=== PATIENT | female | born 1995 | race Hispanic/Latino ===

== ENCOUNTER 2022-01-19 18:50 | Emergency (ER) | payer SELFPAY ==
--- OUTSIDE RECORDS SUMMARY | 2022-01-19 18:53 | XMS REPORT | Continuity of Care Document ---
:1995 Author Organization [facility] t Address [address] [place] [address] Care Team Providers Name Role Phone MARCELA Attending Clinician Unavailable DR HOLLI MELENDEZ Attending Clinician Unavailable MARCELA Admitting Clinician Unavailable DR HOLLI MELENDEZ Admitting Clinician Unavailable Payers Payer Name Policy Type Policy Number Effective Date Expiration Date [facility] [id number] 2018 CHOICE (MEDICAID 00:00:00 REPLACEMENT - HMO) Problems This patient has no known problems. Allergies, Adverse Reactions, Alerts This patient has no known allergies or adverse reactions. Medications This patient has no known medications. Procedures This patient has no known procedures. Encounters Start End Encounter Admission Attending Care Care Encounter Source Date/Time Date/Time Type Type Clinicians Facility Department ID 2021-10-17 2021-10-17 Outpatient [facility] [place] [id number] [place] 06:39:00 06:39:00 [facility] 2021-03-13 2021-03-13 Outpatient [facility] [place] [id number] [place] 12:39:00 12:39:00 [facility] 2019-12-09 2019-12-09 Outpatient [facility] [id number] [place] 12:55:00 12:55:00 [facility]12 [facility] 2019-10-04 2019-10-04 Out[place] [id number] [place] 11:48:00 11:48:00 [facility] [id number] [facility] 2019-09-27 2019-09-27 Outpatient [facility] [id number] [place] 02:44:00 02:44:00 [facility] [id number] [facility] 2019-08-25 2019-08-25 Outpatient [facility] [place] [id number] [place] 06:01:00 06:01:00 [facility] 2018-07-13 2018-07-14 [place] [facility] [place] [id number] 20:25:00 21:15:00 [facility] Results Test Description Test Time Test Comments Results Result [facility] Comments U/S 2018-06-29 OBSTETRIC ULTRASOUND >14 WEEKS*WW* 6 Location code: [id number] 09:42:26 HISTORY: Threatened premature labor - not deliveredGA by today's US: 35 weeks and 6 daysEDD by today's ultrasound: 08/12/2018Findings:There is a single intrauterine in vertex presentation. Estimatedfetal heart rate is 145 beats per minute. Amniotic fluid index is 15.5 cm. Theplacenta is right lateral with grade 1 changes. There is no evidence of previaor abruption. The cervix is closed and measures 3.5 cm. The maternal adnexa areunremarkable. Approximate sonographic age is 35 weeks and 6 days based upon the following:BPD 8.9 cm 35 weeks 6 daysHC 31.9 cm 35 weeks 6 daysAC 32.0 cm 35 weeks 6 daysFL 7.1 cm 36 weeks 3 days ratios are within normal limits. weight estimateWeight: 2834 gramsWT%: 64% for 35 weeks 6 daysAnatomic survey reveals no abnormality of the intracranial contents,four-chamber heart, stomach, bilateral kidneys, urinary bladder, 3 vessel cord,cord insertion, spine, and extremities.IMPRESSION: 1. Single intrauterine in vertex presentation with an approximatesonographic age of 35 weeks and 6 days. 2. No abnormality identified. CBC (INCLUDES AUTOMATED DIFFERENTIAL)* 2018-07-13 21:34:00 Test Item Value Reference Range Interpretation Comme nts WBC (test code = WBC) 10.7 10\S\3/uL 4.5-11.0 RBC (test code = RBC) 3.84 10\S\6/uL 4.30-5.70 L HGB (test code = HBG) 9.0 g/dL 12.0-15.5 L HCT (test code = HCT) 28.8 % 35.0-44.0 L MCV (test code = MCV) 75.0 fL 81.0-99.0 L MCH (test code = MCH) 23.4 pg 27.0-31.0 L MCHC (test code = MCHC) 31.3 g/dL 32.0-36.0 L RDW (test code = RDW) 15.3 % 11.5-14.5 H PLT (test code = PLT) 356 10\S\3/uL 130-400 MPV (test code = MPV) 9.6 fL 9.4-12.4 NEUTROP # (test code = NE#) 7.2 10\S\3/uL 1.6-8.0 LYMPH # (test code = LY#) 2.5 10\S\3/uL 1.1-3.5 MONOCYTE # (test code = MO#) 0.6 10\S\3/uL 0.0-1.1 EOSINOPH # (test code = EO#) 0.1 10\S\3/uL 0.0-0.7 BASOPHIL # (test code = BA#) 0.0 10\S\3/uL 0.0-0.3 IG # (test code = IG#) 0.16 10\S\3/uL 0.00-0.06 H NRBC # (test code = NRBC#) 0.00 10\S\3/uL 0.00-0.01 NEUTROPH % (test code = NE%) 67.0 % 35.0-73.0 LYMPH % (test code = LY%) 23.6 % 20.0-55.0 MONO % (test code = MO%) 5.9 % 2.5-10.0 EOSINOPH % (test code = EO%) 1.6 % 0.0-5.0 BASOPHIL % (test code = BA%) 0.4 % 0.0-2.0 IG % (test code = IG%) 1.5 % 0.0-0.8 H NRBC% (test code = NRBC%) 0.0 % 0.0-0.2 MANDIFF (test code = WMDIFF) NO NO RBC MORPH (test code = WRBCMOR) NORMAL
[2022-01-19 19:36] LABS: Urine Blood Trace-lysed (Negative); Urine Glucose Negative (Negative); Urine Protein Trace (Negative); Urine Specific Gravity >=1.030 (1.005-1.030)
--- NOTE | 2022-01-19 21:48 | EDPHYS ---
Physician Documentation [facility] Name: Deisi Bazan Age: 26 yrs Sex: Female : 1995 Arrival Date: 01/19/2022 Time: 18:51 Bed Treatment Private MD: ED Physician Viktor Griffin HPI: 01/19 20:03 This 26 yrs old Female presents to ER via Ambulatory with complaints of ms3 Headache, Sore Throat. 20:03 26-year-old female with no past medical history presents for headache that began ms3 yesterday associated with sore throat. Patient states her headache is rated a 9/10 located in the frontal region of her head. Patient states she took Advil this morning without relief. Patient denies alleviating or inciting factors. Patient denies nausea, vomiting, diarrhea, fevers, chills. 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 - Social history:: Smoking status: Patient denies any tobacco usage or history of. ROS: 20:04 Constitutional: Negative for fever, and chills. Neck: Negative for injury, pain, and ms3 swelling, Cardiovascular: Negative for chest pain, and palpitations. Respiratory: Negative for shortness of breath, cough, wheezing, and pleuritic chest pain, Abdomen/GI: Negative for abdominal pain, nausea, vomiting, diarrhea, and constipation, MS/Extremity: Negative for injury and deformity, Neuro: Negative for headache, weakness, numbness, tingling. 20:04 All other systems are negative. Exam: 20:04 Constitutional: This is a well developed, well nourished patient who is awake, alert, ms3 and in no acute distress. Head/Face: Normocephalic, atraumatic. Neck: Trachea midline, no cervical lymphadenopathy. Supple, full range of motion without nuchal rigidity, or vertebral point tenderness. No Meningismus. Chest/axilla: Normal chest wall appearance and motion. Nontender with no deformity. Cardiovascular: Regular rate and rhythm with a normal S1 and S2. No gallops, murmurs, or rubs. Normal PMI, no JVD. No pulse deficits. Respiratory: Lungs have equal breath sounds bilaterally, clear to auscultation and percussion. No rales, rhonchi or wheezes noted. No increased work of breathing, no retractions or nasal flaring. Abdomen/GI: Soft, non-tender, with normal bowel sounds. No distension or tympany. No guarding or rebound. No evidence of tenderness throughout. Skin: Warm, dry with normal turgor. Normal color with no rashes, no lesions, and no evidence of cellulitis. MS/ Extremity: Pulses equal, no cyanosis. Neurovascular intact. Full, normal range of motion. Psych: Awake, alert, with orientation to person, place and time. Behavior, mood, and affect are within normal limits. Vital Signs: 19:31 Weight 68.04 kg; Height 5 ft. 2 in. (157.48 cm); vc1 22:02 BP 114 / 76; Pulse 91; Resp 17 S; Temp 98.7(O); Pulse Ox 100% on R/A; Weight 77.11 kg lg3 (R); Height 5 ft. 3 in. (160.02 cm) (R); 22:02 Body Mass Index 30.11 (77.11 kg, 160.02 cm) lg3 MDM: 19:41 Patient medically screened. ms3 20:04 Differential diagnosis: COVID vs Strep Throat vs Generalized Headache. ms3 21:56 Data reviewed: vital signs, nurses notes, lab test result(s), and as a result, I will ms3 discharge patient. Counseling: I had a detailed discussion with the patient and/or guardian regarding: the historical points, exam findings, and any diagnostic results supporting the discharge/admit diagnosis, lab results, the need for outpatient follow up, to return to the emergency department if symptoms worsen or persist or if there are any questions or concerns that arise at home. Transition of care:. ED course: On reevaluation patient is alert and oriented x4, in no apparent distress, nontoxic-appearing, speaking full sentences, ambulatory in emergency department. . 01/19 19:37 Order name: Urine Dipstick-Ancillary; Complete Time: 19:42 EDMS 01/19 19:43 Order name: Strep; Complete Time: 21:13 ms3 01/19 20:05 Order name: SARS-COV-2 RT PCR (Document "Date of Onset" if Symptomatic); Complete Time: lg3 21:43 Administered Medications: No medications were administered Disposition Summary: 01/19/22 21:47 Discharge Ordered Location: Home ms3 Condition: Stable ms3 Diagnosis - Acute streptococcal tonsillitis, unspecified ms3 Followup: ms3 - With: Dimas Evans DO - When: 2 - 3 days - Reason: Recheck today's complaints Discharge Instructions: - Discharge Summary Sheet ms3 - Tonsillitis, [id number] ms3 Forms: - Medication Reconciliation Form ms3 - Thank You Letter ms3 - Work release form lg3 - Antibiotic Education ms3 - Prescription Opioid Use ms3 Prescriptions: - Amoxicillin 500 mg Oral Capsule - take 1 capsule by ORAL route every 12 hours for 10 days; 20 tablet; Refills: 0, ms3 Product Selection Permitted Signatures: Dispatcher [employer] EDMS Titi Sutherladn, COMPUTER SCIENCE PROFESSOR-C COMPUTER SCIENCE PROFESSOR-Cla1 Viktor Griffin DO DO ms3 Awilda Gilbert, RN RN vc1
--- NOTE | 2022-01-19 21:48 | ER ---
Nurse's Notes [facility] Name: Deisi Bazan Age: 26 yrs Sex: Female : 1995 Arrival Date: 01/19/2022 Time: 18:51 Bed Treatment Private MD: Diagnosis: Acute streptococcal tonsillitis, unspecified Presentation: 01/19 19:31 Chief complaint: Patient states: "I have had a headache since yesterday, I took some vc1 Advil but it never went away. No my throat feels swollen.". Coronavirus screen: Vaccine status: Patient reports receiving the 2nd dose of the covid vaccine. Pfizer. Ebola Screen: No symptoms or risks identified at this time. Onset of symptoms was January 18, 2022. 19:31 Method Of Arrival: Ambulatory vc1 19:31 Acuity: KRUNAL 3 vc1 22:01 Initial Sepsis Screen: Does the patient meet any 2 criteria? No. Patient's initial lg3 sepsis screen is negative. Does the patient have a suspected source of infection? No. Patient's initial sepsis screen is negative. Risk Assessment: Do you want to hurt yourself or someone else? Patient reports no desire to harm self or others. Triage Assessment: 22:00 Headache History: Denies prior headaches. Pain: Also complains of. lg3 22:01 General: Appears in no apparent distress. comfortable, Behavior is calm, cooperative. lg3 Pain: Pain currently is 5 out of 10 on a pain scale. Pain: Complains of pain in throat Pain began 1 day ago. 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 - Social history:: Smoking status: Patient denies any tobacco usage or history of. Screenin:06 Abuse screen: Denies threats or abuse. Denies injuries from another. Nutritional lg3 screening: No deficits noted. Tuberculosis screening: No symptoms or risk factors identified. Fall Risk None identified. Assessment: 20:06 General: Appears in no apparent distress. comfortable, Behavior is calm, cooperative. lg3 Pain: Complains of pain in throat and head. Neuro: No deficits noted. Level of Consciousness is awake, alert, obeys commands, Oriented to person, place, time, situation. Cardiovascular: No deficits noted. Denies chest pain, shortness of breath, Capillary refill < 3 seconds Clubbing of nail beds is absent JVD is absent Patient's skin is warm and dry. Respiratory: No deficits noted. Airway is patent Trachea midline Respiratory effort is even, unlabored, Respiratory pattern is regular, symmetrical, Breath sounds are clear bilaterally. GI: No deficits noted. No signs and/or symptoms were reported involving the gastrointestinal system. Abdomen is round non-distended. : No deficits noted. No signs and/or symptoms were reported regarding the genitourinary system. EENT: No deficits noted. Throat is reddened Reports pain when swallowing. Derm: No deficits noted. No signs and/or symptoms reported regarding the dermatologic system. Skin is intact, is healthy with good turgor, Skin is dry, Skin temperature is warm. Musculoskeletal: No deficits noted. No signs and/or symptoms reported regarding the musculoskeletal system. Circulation, motion, and sensation intact. Range of motion: intact in all extremities. 22:00 Reassessment: Patient appears in no apparent distress at this time. No changes from lg3 previously documented assessment. Patient and/or family updated on plan of care and expected duration. Pain level reassessed. Patient is alert, oriented x 3, equal unlabored respirations, skin warm/dry/pink. Vital Signs: 19:31 Weight 68.04 kg; Height 5 ft. 2 in. (157.48 cm); vc1 22:02 BP 114 / 76; Pulse 91; Resp 17 S; Temp 98.7(O); Pulse Ox 100% on R/A; Weight 77.11 kg lg3 (R); Height 5 ft. 3 in. (160.02 cm) (R); 22:02 Body Mass Index 30.11 (77.11 kg, 160.02 cm) lg3 ED Course: 18:51 Patient arrived in ED. mr 19:05 Viktor Griffin DO is Attending Physician. ms3 19:33 Triage completed. vc1 19:52 Marilia Liu, BRITANY is Primary Nurse. lg3 20:06 Urine collected: clean catch specimen, cloudy. mh5 20:07 Patient has correct armband on for positive identification. Bed in low position. Call [facility] light in reach. Pulse ox on. NIBP on. 20:08 SARS-COV-2 RT PCR (Document "Date of Onset" if Symptomatic) Sent. lg3 21:47 Dimas Evans DO is Referral Physician. ms3 22:00 No provider procedures requiring assistance completed. Patient did not have IV access lg3 during this emergency room visit. 22:02 Arm band placed on. lg3 Administered Medications: No medications were administered Medication: 22:02 VIS not applicable for this client. lg3 Outcome: 21:47 Discharge ordered by MD. ms3 22:01 Discharged to home ambulatory. lg3 22:01 Condition: stable 22:01 Discharge instructions given to patient, Instructed on discharge instructions, follow up and referral plans. medication usage, Demonstrated understanding of instructions, follow-up care, medications, Prescriptions given X 1. 22:02 Patient left the ED. lg3 Signatures: Stephanie Betancourt Sangeeta Lai 5 Marilia Liu, RN RN lg3 Viktor Griffin DO DO ms3 Awilda Gilbert RN RN vc1
[2022-01-19 22:47] VITALS: BP 114/76; TEMP 98.7; O2SAT 100
== END 2022-01-19 22:02 | disposition home or self-care (01) ==
LOC: ER 18:50
DX: J02.0 Streptococcal pharyngitis (principal); Z20.822 Contact with and (suspected) exposure to COVID-19
CPT/HCPCS: 81003; 87081; 99283; U0003

== ENCOUNTER → 2023-07-27 | Emergency (ER) | payer SELFPAY ==
[~2023-07-27] MED LIST: BENZONATATE 100 MG CAP PO ONE; IBUPROFEN 200 MG TAB PO ONE
--- OUTSIDE RECORDS SUMMARY | 2023-07-27 10:09 | XMS REPORT | Continuity of Care Document ---
Author Name Unknown Address [address] [facility] [address]. [address] [place] [address] [facility] thconnect Address [address] [facility]. [address] [place] [address] Care Team Providers Care [facility] Medical Biller Name Role Phone LEYDI TYLER Primary Care Physician Unavailab CINDA Mix Attending Clinician Unavaila ble SOFIE MEDRANO Attending Clinician Unavail able Nurse, Anders Rmchlandy Rgv Cprit Obgyn Attending Clini clovis Unavailable Marcela Sofie MOLINA Attending Clinician + Pea-Rmchp Nurse Vst, Fp Nrpt Pills Class Attendi ng Clinician Unavailable Maeve Escalante Attending Clinician [phone] MAEVE ALVARADO Attending Clinician Unavailab le Doctor Unassigned, [place] Attending Clinician U Cinda Denson CNM Attending Clinician [phone] MARCELA Attending Clinician Unavailab DR SARA Corey Attending Clinicia n Unavailable MARCELA Admitting Clinician Unavailab elda MELENDEZ, DR SARA DE LA GARZA Admitting Clinicia n Unavailable Payers Payer Name Policy Type Policy Number Effective Date Expirati on Date Source [facility] [id number] 2022 00:00:00 [facility] (MEDICAID REPLACEMENT - HMO) [id number] 2018 00:00:00 Problems Condition Name Condition Details Condition Category Status Onset Date Resolution Date Last Treatment Date Treating Clinician Comments Source 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 No ADRIANNE noted on colposcop y bx. Needs repeat co-testin g in 12 months (12/2023) . [facility] Chlamydia trachomati s infection of lower genitourin alfonso sites Chlamydia trachomati s infection of lower genitourin alfonso sites Disease Active 01-22 00:00: 00 [facility] Obesity (BMI 30-39.9) Obesity (BMI 30-39.9) Disease Active 01-21 00:00: 00 [facility] History of abnormal cervical Pap smear History of abnormal cervical Pap smear Disease Active 01-20 00:00: 00 Overview: Formattin g of this note might be different from the original. pap negative with +HPV, see external records from [id number] ASCUS with HPV+, needs colpo [facility] History of bilateral tubal ligation History of bilateral tubal ligation Disease Active 01-20 00:00: 00 [facility] Allergies, Adverse Reactions, Alerts Allergy Name Allergy Type Status Severity Reaction(s) Onset Date Inactive Date Treating Clinician Comments Source NO KNOWN ALLERGIE S Drug Class Active [facility] Social History Social Habit Start Date Stop Date Quantity Comments Source Gender identity [facility] Alcohol intake 2023-02-05 00:00:00 2023-02-05 00:00:00 Lifetime non-drinker (finding) [facility] Tobacco use and exposure 2023-01-20 00:00:00 2023-01-20 00:00:00 Smokeless tobacco non-user [facility] History of Social function 2023-01-20 00:00:00 2023-01-20 00:00:00 [facility] Sex Assigned At 1995 00:00:00 1995 00:00:00 [facility] Smoking Status Start Date Stop Date Source Never smoked tobacco [facility] Medications Ordered Medication Name Filled Medication Name Start Date Stop Date Current Medication? Ordering Clinician Indication Dosage Frequency Signature (SIG) Comments Components Source metroNIDAZO LE 500 mg tablet 01-26 00:00: 00 02-03 04:59 :00 No [id number] 500mg Take 1 tablet by mouth in the morning and 1 tablet in the evening. Do all this for 7 days. [facility] metroNIDAZO LE 500 mg tablet 01-26 00:00: 00 02-03 04:59 :00 No [id number] 500mg Take 1 tablet by mouth in the morning and 1 tablet in the evening. Do all this for 7 days. [facility] doxycycline hyclate 100 mg capsule 01-22 00:00: 00 01-30 04:59 :00 No [id number] 100mg Take 1 capsule by mouth in the morning and 1 capsule in the evening. Do all this for 7 days. [facility] doxycycline hyclate 100 mg capsule 01-22 00:00: 00 01-30 04:59 :00 No [id number] 100mg Take 1 capsule by mouth in the morning and 1 capsule in the evening. Do all this for 7 days. [facility] Vital Signs Vital Name Observation Time Observation Value Comments S coleen Body temperature 2023-03-05 14:43:00 35.61 Latoya [facility] Systolic blood pressure 2023-02-05 18:52:00 126 mm[Hg] [facility] Diastolic blood pressure 2023-02-05 18:52:00 81 mm[Hg] [facility] Heart rate 2023-02-05 18:52:00 94 [facility] Body temperature 2023-02-05 18:51:00 36.39 Latoya [facility] Respiratory rate 2023-02-05 18:51:00 20 /min [facility] Body height 2023-02-05 18:51:00 154.9 cm [facility] Body weight 2023-02-05 18:51:00 75.297 kg [facility] BMI 2023-02-05 18:51:00 31.37 kg/m2 [facility] Systolic blood pressure 2023-02-05 18:54:00 126 mm[Hg] [facility] Diastolic blood pressure 2023-02-05 18:54:00 81 mm[Hg] [facility] Heart rate 2023-02-05 18:54:00 94 /min [facility] Body temperature 2023-02-05 18:48:00 36.39 Latoya [facility] Respiratory rate 2023-02-05 18:48:00 20 /min [facility] Body height 2023-02-05 18:48:00 154.9 cm [facility] Body weight 2023-02-05 18:48:00 75.297 kg Univ [facility] BMI 2023-02-05 18:48:00 31.37 kg/m2 Univ [facility] Systolic blood pressure 2023-01-20 19:23:00 136 mm[Hg] [facility] Diastolic blood pressure 2023-01-20 19:23:00 80 mm[Hg] [facility] Heart rate 2023-01-20 19:18:00 95 /min [facility] Body temperature 2023-01-20 19:18:00 36.72 Latoya [facility] Respiratory rate 2023-01-20 19:18:00 18 /min [facility] Body height 2023-01-20 19:18:00 154.9 cm [facility] Body weight 2023-01-20 19:18:00 74.39 kg [facility] BMI 2023-01-20 19:18:00 30.99 kg/m2 [facility] Procedures Procedure Date / Time Performed Performing Clinician Source GARDASIL 9 (HPV 9V) VACCINE 2023-03-05 14:42:42 Sofie Medrano [facility] POCT TEST 2023-02-05 18:53:00 Abelardo Alvarado [facility] POCT TEST 2023-02-05 18:50:00 Abelardo Alvarado [facility] AUTHORIZATION FOR RELEASE OF PHI 2023-02-04 05:01:00 Doctor Unassigned, [place] [facility] CBC WITH DIFF 2023-01-20 20:25:00 Cinda Tapia [facility] HCV ANTIBODY 2023-01-20 20:25:00 Cinda Tapia [facility] HIV 1/2 AG-AB WITH REFLEX 2023-01-20 20:25:00 Cinda Tapia [facility] PAP SMEAR-LIQUID BASED-CP 2023-01-20 20:25:00 Cinda Tapia [facility] SYPHILIS IGG/IGM 2023-01-20 20:25:00 Cinda Tapia [facility] GARDASIL 9 (HPV 9V) VACCINE 2023-01-20 19:30:17 Sofie Medrano [facility] Encounters Start Date/Time End Date/Time Encounter Type Admission Type Attending Clinicians Care Facility Care Department Encounter ID Source 2023-08-04 14:00:00 2023-08-04 14:00:00 Outpatient R [facility] [id number] [facility] 2023-04-24 10:30:00 2023-04-24 10:30:00 Outpatient R SOFIE MEDRANO [facility] [id number] [facility] 2023-03-05 09:45:00 2023-03-05 10:00:00 Nurse Visit Nurse, Anders Rmchp Rgv Cprit Obgyn Sofie Medrano [facility]EL[facility] SUPERINTENDENT DIVISION [facility] MATERNAL & CHILD HEALTH [facility] 1.2.840.114 350.1.13.10 4.2.7.2.686 [id number] [facility] 2023-03-05 09:45:00 2023-03-05 09:45:15 Outpatient R BRYANT MEDRANOILOLA [facility] [id number] [facility] 2023-02-27 10:00:00 2023-02-27 10:00:00 Outpatient R [facility] [id number] [facility] 2023-02-25 14:00:00 2023-02-25 14:00:00 Outpatient R CINDA TAPIA [facility] [id number] [facility] 2023-02-05 14:45:00 2023-02-05 15:00:00 Nurse Visit Pea-Rmchp Nurse Vst, Fp Nrpt Pills Class Maeve Alvarado [facility]EL[facility] SUPERINTENDENT DIVISION [facility] & CHILD [facility] ..840.114 350.1.13.10 4.2.7.2.686 [id number] [facility] 2023-02-05 13:45:00 2023-02-05 14:57:26 Outpatient R MAEVE ALVARADO [facility] [id number] [facility] 2023-02-05 13:45:00 2023-02-05 14:57:26 Office Visit Maeve Alvarado [facility] DIVISION [facility] & CHILD [facility] ..840.114 350.1.13.10 4.2.7.2.686 [id number] [facility] 2023-02-05 14:45:00 2023-02-05 14:45:00 Outpatient R MAEVE ALVARADO [facility] [id number] [facility] 2023-02-04 09:00:00 2023-02-04 09:00:00 Outpatient R MARCELA SOFIE [facility] [id number] [facility] 2023-02-04 00:00:00 2023-02-04 00:00:00 Orders Only Doctor Unassigned, [place] [facility] 1.2840.114 350.1.13.10 4.2.7.2.686 [id number] [facility] 2023-02-02 12:30:00 2023-02-02 12:30:00 Outpatient R SOFIE MEDRANO [facility] [id number] [facility] 2023-02-02 00:00:00 2023-02-02 00:00:00 Telephone Cinda Tapia [facility] DIVISION [facility] MATERNAL & CHILD [facility] 1.2.840.114 350.1.13.10 4.2.7.2.686 [id number] [facility] 2023-01-30 00:00:00 2023-01-30 00:00:00 Telephone Cinda Tapia [facility] DIVISION [facility] & CHILD [facility] 1.2.840.114 350.1.13.10 4.2.7.2.686 [id number] [facility] 2023-01-26 00:00:00 2023-01-26 00:00:00 Telephone Cinda Tapia [facility]PER[facility]ENDENT DIVISION [facility] CHILD [facility] 1.2.840.114 350.1.13.10 4.2.7.2.686 [id number] [facility] 2023-01-22 00:00:00 2023-01-22 00:00:00 Telephone Cinda Tapia [facility] DIVISION [facility] & CHILD [facility] 1.2.840.114 350.1.13.10 4.2.7.2.686 [id number] [facility] 2023-01-20 14:30:00 2023-01-20 15:27:01 Office Visit Cinda Tapia [facility] DIVISION [facility] & CHILD [facility] 1.2.840.114 350.1.13.10 4.2.7.2.686 [id number] [facility] 2023-01-20 14:30:00 2023-01-20 15:27:01 Outpatient Yaya RODRIGUEZCINDA FIORE [facility] [id number] [facility] 2021-10-17 06:39:00 2021-10-17 06:39:00 Outpatient DICLEMENTENancy [facility] [id number] [facility] 2021-03-13 12:39:00 2021-03-13 12:39:00 Outpatient DICLEMENTENancy [facility] [id number] [facility] 2019-12-09 12:55:00 2019-12-09 12:55:00 Outpatient DICLEMENTDavid [facility] [id number] [facility] 2019-10-04 11:48:00 2019-10-04 11:48:00 Outpatient DICLEMENTE_ SARA [facility] [id number] [facility] 2019-09-27 02:44:00 2019-09-27 02:44:00 Outpatient DICLEMENTENancy [facility] [id number] [facility] 2019-08-25 06:01:00 2019-08-25 06:01:00 Outpatient DICLEMENTENancy [facility] [id number] [facility] 2018-07-13 20:25:00 2018-07-14 21:15:00 Outpatient S[place] GARCIA [facility] [place] [id number] [facility] Results Test Description Test Time Test Comments Results Result Co mments Source [id number] 18:50:00* Test Item Value Reference Range Interpretation Comme nts POCT PREG (test code = 1605) Negative On board controls acceptable with C Line (test code = 3574) Yes POCT PREG LOT # (test code = 3575) POCT PREG TEST DATE ( test code = 3576) [facility] [id number] 18:50:00* Test Item Value Reference Range Interpretation Comme nts POCT PREG (test code = 1605) Negative On board controls acceptable with C Line (test code = 3574) Yes POCT PREG LOT # (test code = 3575) POCT PREG TEST DATE ( test code = 3576) [facility] ONLY - SYPHILIS IGG/[id number] 17:24:34* Test Item Value Reference Range Interpretation Comme nts Syphilis IgG/IgM (test code = 68165-9) Non-reactive Non-reactive EVAN (test code = EVAN) Non-reactive - No serologic evidence of T. pallidum infection. Cannot exclude incubating or early syphilis. Submit a second specimen in 2-4 weeks if syphilis is clinically suspected. Equivocal - Further testing to follow. Reactive - Further testing to follow. Lab Interpretation (test code = 35921-3) Normal [facility] ONLY - SYPHILIS [id number] 17:24:34* Test Item Value Reference Range Interpretation Comme nts Syphilis IgG/IgM (test code = 87536-1) Non-reactive Non-reactive EVAN (test code = EVAN) Non-reactive - No serologic evidence of T. pallidum infection. Cannot exclude incubating or early syphilis. Submit a second specimen in 2-4 weeks if syphilis is clinically suspected. Equivocal - Further testing to follow. Reactive - Further testing to follow. Lab Interpretation (test code = 88994-1) Normal [facility] 1/2 AG-AB WITH [id number] 05:42:44* Test Item Value Reference Range Interpretation Comme nts HIV Semi-quantitative (test code = 68262-4) 0.10 Negative EVAN (test code = EVAN) Non-reactive for HIV-1 antigen and HIV-1/HIV-2 antibodies. ?No laboratory evidence of HIV infection. ?Repeat in 2-4 weeks if acute HIV infection is suspected. [facility] 1/2 AG-AB WITH [id number] 05:42:44* Test Item Value Reference Range Interpretation Comme nts HIV Semi-quantitative (test code = 73891-1) 0.10 Negative EVAN (test code = EVAN) Non-reactive for HIV-1 antigen and HIV-1/HIV-2 antibodies. ?No laboratory evidence of HIV infection. ?Repeat in 2-4 weeks if acute HIV infection is suspected. [facility] [id number] 05:42:43* Test Item Value Reference Range Interpretation Comme nts HCV Ab (test code = 91916-2) Negative HCV Semi-Quantitative (test code = 39102-2) 0.02 [facility] [id number] 05:42:43* Test Item Value Reference Range Interpretation Comme nts HCV Ab (test code = 70368-9) Negative HCV Semi-Quantitative (test code = 58785-2) 0.02 [facility] WITH [id number] 04:44:19* Test Item Value Reference Range Interpretation Comme nts WBC (test code = 6690-2) 8.35 See_Comment [Automated messa ge] The system which generated this result transmitted reference range: 4.30 - 11.10 10*3/?L. The reference range was not used to interpret this result as normal/abnormal. RBC (test code = 789-8) 4.59 See_Comment [Automated messa ge] The system which generated this result transmitted reference range: 3.93 - 5.25 10*6/?L. The reference range was not used to interpret this result as normal/abnormal. HGB (test code = 718-7) 13.1 g/dL 11.6-15.0 HCT (test code = 4544-3) 39.0 % 35.7-45.2 MCV (test code = 787-2) 85.0 fL 80.6-95.5 MCH (test code = 785-6) 28.5 pg 25.9-32.8 MCHC (test code = 786-4) 33.6 g/dL 31.6-35.1 RDW-SD (test code = 87513-2) 37.4 fL 39.0-49.9 L RDW-CV (test code = 788-0) 12.3 % 12.0-15.5 PLT (test code = 777-3) 358 See_Comment [Automated messa ge] The system which generated this result transmitted reference range: 166 - 358 10*3/?L. The reference range was not used to interpret this result as normal/abnormal. MPV (test code = 15562-3) 9.5 fL 9.5-12.9 NRBC/100 WBC (test code = 5037069176) 0.0 See_Comment [Automated me ssage] The system which generated this result transmitted reference range: 0.0 - 10.0 /100 WBCs. The reference range was not used to interpret this result as normal/abnormal. NRBC x10^3 (test code = 4229148766) See_Comment [Automated messa ge] The system which generated this result transmitted reference range: 10*3/?L. The reference range was not used to interpret this result as normal/abnormal. GRAN MAT (NEUT) % (test code = 770-8) 52.4 % IMM GRAN % (test code = 6346113028) 0.40 % LYMPH % (test code = 736-9) 38.4 % MONO % (test code = 5905-5) 5.9 % EOS % (test code = 713-8) 2.4 % BASO % (test code = 706-2) 0.5 % GRAN MAT x10^3(ANC) (test code = 9276553408) 4.38 10*3/uL 1.88-7.09 IMM GRAN x10^3 (test code = 2927214098) 0.03 10*3/uL 0.00-0.06 LYMPH x10^3 (test code = 731-0) 3.21 10*3/uL 1.32-3.29 MONO x10^3 (test code = 742-7) 0.49 10*3/uL 0.33-0.92 EOS x10^3 (test code = 711-2) 0.20 10*3/uL 0.03-0.39 BASO x10^3 (test code = 704-7) 0.04 10*3/uL 0.01-0.07 Lab Interpretation (test code = 34785-4) Abnormal [facility] WITH [id number] 04:44:19* Test Item Value Reference Range Interpretation Comme nts WBC (test code = 6690-2) 8.35 See_Comment [Automated [employer]a ge] The system which generated this result transmitted reference range: 4.30 - 11.10 10*3/?L. The reference range was not used to interpret this result as normal/abnormal. RBC (test code = 789-8) 4.59 See_Comment [Automated [employer]a ge] The system which generated this result transmitted reference range: 3.93 - 5.25 10*6/?L. The reference range was not used to interpret this result as normal/abnormal. HGB (test code = 718-7) 13.1 g/dL 11.6-15.0 HCT (test code = 4544-3) 39.0 % 35.7-45.2 MCV (test code = 787-2) 85.0 fL 80.6-95.5 MCH (test code = 785-6) 28.5 pg 25.9-32.8 MCHC (test code = 786-4) 33.6 g/dL 31.6-35.1 RDW-SD (test code = 04643-1) 37.4 fL 39.0-49.9 L RDW-CV (test code = 788-0) 12.3 % 12.0-15.5 PLT (test code = 777-3) 358 See_Comment [Automated [employer] ge] The system which generated this result transmitted reference range: 166 - 358 10*3/?L. The reference range was not used to interpret this result as normal/abnormal. MPV (test code = 33673-0) 9.5 fL 9.5-12.9 NRBC/100 WBC (test code = 4820302686) 0.0 See_Comment [Automated [employer] ssage] The system which generated this result transmitted reference range: 0.0 - 10.0 /100 WBCs. The reference range was not used to interpret this result as normal/abnormal. NRBC x10^3 (test code = 7977434262) See_Comment [Automated [employer]a ge] The system which generated this result transmitted reference range: 10*3/?L. The reference range was not used to interpret this result as normal/abnormal. GRAN MAT (NEUT) % (test code = 770-8) 52.4 % IMM GRAN % (test code = 3028767502) 0.40 % LYMPH % (test code = 736-9) 38.4 % MONO % (test code = 5905-5) 5.9 % EOS % (test code = 713-8) 2.4 % BASO % (test code = 706-2) 0.5 % GRAN MAT x10^3(ANC) (test code = 4158311674) 4.38 10*3/uL 1.88-7.09 IMM GRAN x10^3 (test code = 6438430451) 0.03 10*3/uL 0.00-0.06 LYMPH x10^3 (test code = 731-0) 3.21 10*3/uL 1.32-3.29 MONO x10^3 (test code = 742-7) 0.49 10*3/uL 0.33-0.92 EOS x10^3 (test code = 711-2) 0.20 10*3/uL 0.03-0.39 BASO x10^3 (test code = 704-7) 0.04 10*3/uL 0.01-0.07 Lab Interpretation (test code = 63375-1) Abnormal [facility] >14 [facility]*WW*2018-07-14 09:42:26 OBSTETRIC ULTRASOUND Location code: [id number] HISTORY: Threatened premature labor - not deliveredGA [...] survey reveals no abnormality of the intracranial contents,four- chamber heart, stomach, bilateral kidneys, urinary bladder, 3 vessel cord,cord insertion, spine, and extremities.IMPRESSION: 1. Single intrauterine in vertex presentation with an approximatesonographic age of 35 weeks and 6 days . 2. No abnormality identified.CBC (INCLUDES AUTOMATED DIFFERENTIAL)* 2018-07-13 21:34:00* Test Item Value Reference Range Interpretation Comme nts WBC (test code = WBC) 10.7 10\\S\\3/uL 4.5-11.0 RBC (test code = RBC) 3.84 10\\S\\6/uL 4.30-5.70 L HGB (test code = HBG) 9.0 g/dL 12.0-15.5 L HCT (test code = HCT) 28.8 % 35.0-44.0 L MCV (test code = MCV) 75.0 fL 81.0-99.0 L MCH (test code = MCH) 23.4 pg 27.0-31.0 L MCHC (test code = MCHC) 31.3 g/dL 32.0-36.0 L RDW (test code = RDW) 15.3 % 11.5-14.5 H PLT (test code = PLT) 356 10\\S\\3/uL 130-400 MPV (test code = MPV) 9.6 fL 9.4-12.4 NEUTROP # (test code = NE#) 7.2 10\\S\\3/uL 1.6-8.0 LYMPH # (test code = LY#) 2.5 10\\S\\3/uL 1.1-3.5 MONOCYTE # (test code = MO#) 0.6 10\\S\\3/uL 0.0-1.1 EOSINOPH # (test code = EO#) 0.1 10\\S\\3/uL 0.0-0.7 BASOPHIL # (test code = BA#) 0.0 10\\S\\3/uL 0.0-0.3 IG # (test code = IG#) 0.16 10\\S\\3/uL 0.00-0.06 H NRBC # (test code = NRBC#) 0.00 10\\S\\3/uL 0.00-0.01 NEUTROPH % (test code = NE%) [...] RBC MORPH (test code = WRBCMOR) NORMAL Notes Date/Time Note Provider Source 2023-02-03 10:26:19 urePiqMqSVdyK+N+qzSP N+V4KC+YVTLQ 6NhcM58ZJTAVfZxyxNRUDEovlcL9h5Vq 1063-34-59I92:26:19 Patient wanted to see when she needed to have her DENISHA. Informed patient she is scheduled for DENISHA on 04/24/2023, verbalized understanding. 72559-8Utrligiqo encounter KikmUG1381-54-42U77:30:08Telepho ne encounter NoteTXT1.2.840.511025.1.13.104.2 .7.2.435168|[id number] e for patient qhdn23804-7NwbaIT598067918Wjdfwi irving Sandoval [address] JnreRtaavnxidRimlznkdfTZLP448009 8980SQMKKYIWPVFRBDKHGYWOBQ4104-7 0:30:081.2.840.783215.1.72 .3.15|1.2.840.932293.1.13.104.2. 7.2.727879_[id number] Ariana Sandoval LVN [facility] 2023-02-03 10:09:36 kCPaDzOKDAxfUOUprYrL urban forester/vU0ILnLFO soqdJygwI7eVvWzhgacrpixmlagLENnr 0537-95-31Z31:09:36 Patient is returning gabrielas call, please call patient back in regards to this encounter. 40053-8Nvztyrezn encounter GcusNC8682-72-21G71:10:10Telepho ne encounter NoteTXT1.2.840.291484.1.13.104.2 .7.2.550951|[id number] e for patient ibzz64388-7FqryLT557190307Rttocv a [address] 0675WZUJOFQLIUVABDEDNKEWTS0848-1 8-08T10:10:101.2.840.455471.1.72 .3.15|1.2.840.883263.1.13.104.2. 7.2.727879_[id number] Nisha Haas [facility] 2023-02-03 10:07:56 fKNLrdptcN/R4odLydbk Iz7UfQONkLPv lHGKXyLiZd6XeUiRbrZz/FCCnllXIucW 4356-98-88C07:07:56 Deisi Bazan is a 27 year old femalePt returning nurse call. Connected to clinic 24368-9Sxhnjletg encounter EviyID9092-00-90R82:08:30Telepho ne encounter NoteTXT1.2.840.106483.1.13.104.2 .7.2.233103|[id number] e for patient mrxi02065-5IjobMX359952495Legp Bazan [address]UT[address]TX[place] 6091ZWCBZYCSNVCUEBEGHWAGSM9279-5 0:08:301.2.840.477603.1.72 .3.15|1.2.840.032564.1.13.104.2. 7.2.727879_[id number] Taina Sterling [facility] 2023-02-03 09:10:21 U2rYWnwvQwBUC6IBsgK4 oDTXFANK6ock CZ3bNHtwMb+8VE68wziys2vrC14fE+LJ 0907-70-21M84:10:21 Attempted to call patient, [place] [address]-5Zildgosjm encounter UhicLN8733-48-79N30:10:37Telepho ne encounter NoteTXT1.2.840.356423.1.13.104.2 .7.2.200460|[id number] for patient tcoq72720-6FbgaRKWQTFXTOA[address] MwbgMexddajtcFzrxpxxfkWSAX355923 1695EFJGBJVWNCARSWJTVEYPUZ7632-2 8-08T09:10:371.2.840.387275.1.72 .3.15|1.2.840.219608.1.13.104.2. 7.2.727879_[id number] [facility] 2023-02-03 09:09:25 sovGGdQx0osRsYd0QAwp bvK+43uVcz3w 2Ofs6k/pSPHrIvY1tHq88aJvjjoExAik 3008-14-89G48:09:25 Noted. 89201-7Nueenkjhk encounter YkbsKP6113-33-23Y53:09:35Telepho ne encounter NoteTXT1.2.840.095587.1.13.104.2 .7.2.333869|[id number] e for patient kqat09303-0XoepPG367614716Mlxdmf la Garcia [address] 9849DAYVIGSETQIVMWQSZKGHRB4930-5 09:09:351.2.840.592629.1.72 .3.15|1.2.840.544338.1.13.104.2. 7.2.727879_[id number] Ariana Sandoval [facility] 2023-02-02 16:47:51 rKh31b8ETVSsFRhf+qrk dvOJvE3CoNef 2ihu+HW4meSZ6tS1raZ6QRK9mSEaupA8 4488-45-73N92:47:51 Patient will call us back to schedule .02/02/23 67768-5Bvjbdgdnq encounter CrlzVD1761-89-93Q37:48:17Telepho ne encounter NoteTXT1.2.840.135678.1.13.104.2 .7.2.676570|6439353192QZSiwfhyqz e for patient ylva38354-9MvarWA36662937Vdnqlmq na M Garcia [address] 1633FLRPZJHHAHINZLECZBXRFO9210-0 6:48:171.2.840.283239.1.72 .3.15|1.2.840.557901.1.13.104.2. 7.2.727879_[id number] Flory Fitch [facility] 2023-02-02 16:38:04 RDmo5JrIDp1YseK23tij u7rTRYKzWHYt r2g5k8UBJ4NBNdAZoVtizcll+5/rxkM/ 7642-33-76J80:38:04 Deisi Bazan is a 27 year old femalePt has questions regarding the prescribed medication.Please call [phone] (home) 20899-0Cgiddfadl encounter TtfeMQ0870-60-39C82:38:55Telepho ne encounter NoteTXT1.2.840.238819.1.13.104.2 .7.2.251784|[id number] e for patient azww24851-8ZejbKYIGCMDKVD[address]TX[place] 4821HDADRQDSOCLDGMXJTOMCRI5169-8 8-07T16:38:551.2.840.757810.1.72 .3.15|1.2.840.927039.1.13.104.2. 7.2.727879_[id number] [facility] 2023-02-02 08:13:19 3u2ok5XmKIobB9vSpjPZ iusa+Q1nkN50 6Ht5eMJZExUs4NsqhahhvXbSzA+rhMzJ 0171-87-05G41:13:19 Called pt, discussed pap smear results and poc. Pt scheduled for colpo. Routed to pss for financial screening appt.Haleigh Lea RN 02/02/23 8:13 AM 34630-9Eiqldrxar encounter RuxhUZ4362-38-65R81:14:32Telepho ne encounter NoteTXT1.2.840.050252.1.13.104.2 .7.2.545195|4785640204RDDhrpqqha e for patient uyyu02729-9ZhifLG376344833Bvxwfu ah Hernandez [address] 6232ICXCSAQRRNXLMMDQPQYMGI9071-0 08:14:321.2.840.584800.1.72 .3.15|1.2.840.077471.1.13.104.2. 7.2.727879_[id number] Haleigh Lea RN [facility] 2023-01-30 16:59:44 OFwQ+Af+2UszhHufyjMA Q7FiAcHQJZON geh1rYEI+pYXWd024YEd5jtMV5TEw1GK 1978-08-84W25:59:44 Patient returning missed call 33743-5Iqnftuovq encounter QuzbDM8431-06-94U35:00:04Telepho ne encounter NoteTXT1.2.840.074452.1.13.104.2 .7.2.487584|3766299810QSHuehdrhc e for patient xtsp21854-5KlhtRY957833501Opcyvp coco De Jesus [address] AiqiKutqlopcbUbhbcikrgKJBM947027 5585LCNQROYXYNXLHHPBFNDEIU1585-2 :00:041.2.840.304980.1.72 .3.15|1.2.840.318972.1.13.104.2. 7.2.727879_[id number] Kinjal Angel [facility] 2023-01-30 16:21:51 cyi0QqSwAB2xWF7bve+2 cE4swRYlbiy7 9QLz+D9Qba/rFhzG0KX9qcX7lj0d/Cedric/ 7415-18-50T36:21:51 Called pt, no answer. Left vm.Haleigh Lea RN 01/30/23 4:22 PM 13754-7Wvukyrvat encounter LyroIZ8769-91-00A34:22:17Telepho ne encounter NoteTXT1.2.840.310618.1.13.104.2 .7.2.114008|7027983324YVQypbouma e for patient ezrx98814-6GjbaWKFZQIIBAB[address] 4376HMRJVOLCDANRJAAOGENVQH6559-3 6:22:171.2.840.842992.1.72 .3.15|1.2.840.186997.1.13.104.2. 7.2.727879_[id number] [facility] 2023-01-30 14:08:07 AqNX1p49K2gApkrUmWgD a+NdL/FNL5DV H3YoylF6iV7Ym0VQ6Yc2i9iJ/AcGh193 5778-81-78M53:08:07 Please call patient and let her know she needs colpo for ASCUS with +HPV. 98496-8Vaavjrztr encounter EbzyGH1222-72-84G52:08:45Telepho ne encounter NoteTXT1.2.840.897586.1.13.104.2 .7.2.199076|9353678493HFWwioosjn e for patient whgc13496-7FxwdOPKNLSHTWA[address]TX[place] 6355XOAUQELGAGBCJGKZYINOYL9597-2 4:08:451.2.840.322900.1.72 .3.15|1.2.840.321793.1.13.104.2. 7.2.727879_[id number] [facility] 2023-01-26 09:59:19 CKLNYGCBNr5Yhy2zKHRC x31Kt5EHqh7o 61ikANaz0yUNQiwgMc5HU/WfQAMq19Al 6031-62-51D67:59:19 Called patient, notified positive for BV. Educated patient on antibiotics, daily probiotics, and BV prevention measures. Pt verbalized understanding.RUBIN BLACKWOOD RN 01/26/2023 9:59 AM 46207-8Rcnaxakol encounter ZoayWU8596-63-39O46:59:28Telepho ne encounter NoteTXT1.2.840.605922.1.13.104.2 .7.2.645710|8263392365PWDpffpvtn e for patient uula43896-1ZmjwABSRSTMJTV[address] 8141YPNLOWYYPADZHVMDABYPFM5801-0 09:59:281.2.840.682429.1.72 .3.15|1.2.840.669393.1.13.104.2. 7.2.727879_[id number] [facility] 2023-01-26 09:34:29 DapjL0OS90uOptXXxmrk QaOe1z0g04Gs UEXd/v6AOzx+GWNJpTT/cOv53XRVavea 0740-77-78Z60:34:29 Please call patient and let her know I ex flagyl to pharmacy for BV. 69453-8Icotjrowx encounter JxdbKM4973-20-14Q40:35:43Telepho ne encounter NoteTXT1.2.840.136279.1.13.104.2 .7.2.887905|6545325834EWJfzgvtuw e for patient gyal29591-2UqxyNFBIVKDCWO[address] DdmwTdhimfbnqUnjiiwljqKHGL135312 1939UVAJWEYVLUYXYVPIUEBHLE5508-4 7-31T09:35:431.2.840.707605.1.72 .3.15|1.2.840.778232.1.13.104.2. 7.2.727879_[id number] [facility] 2023-01-23 07:54:28 9cODNb44aEFtqDGSiw5U BlLKGgBOFcHn 7MSZIWEAo2wKFviq1fA6DnIeNw4aymU9 8451-80-77L37:54:28 Notified the patient of her positive STI results chlamydia.Notified the patient her medication has been sent to her pharmacy on file. Educated patient she should complete the entire course, advised patient to practice safe sex practices and to remain abstinent for at least 1-2 weeks post treatment.Patient desires to have partner treated, call placed to pharmacy [facility] [place] order given for Doxycycline 100 mg PO BID x 7 days for Name of partner:Meño RandolphB:08[birth year]01/1997NKDA:Phone number:[phone] std pamphlet for partner education. Patient declinedstd pamphlet to be mailed to partner.Advised patient on HIV testing if she has not recently been tested.Advised DENISHA appointment in 3 months. Pt verbalized understanding. 93898-0Efzcnlvma encounter HdclNW4202-63-28R04:53:03Telepho ne encounter NoteTXT1.2.840.498635.1.13.104.2 .7.2.220260|[id number] e for patient ylll390935450Abrtnwwu Jaime [address] CwjnPubermauoNvtqgwfftKTQA107790 9315YAUQWMYDGGHUTUSGHTTXIV9945-9 7-28T09:53:031.2.840.914513.1.72 .3.15|1.2.840.054010.1.13.104.2. 7.2.727879_[id number] Ariana Sandoval ALYSE [facility] 2023-01-22 19:47:17 Get5fqO69FyBsJsBtGQ4 Ea8gfHWvzUGN 1q6vBcaua8R8dS/Jessika/j/whOSsFe9HRQ 7623-49-32O21:47:17 Pt tested positive for chlamydia. Prescription for doxycycline routed to her pharmacy on file/ordered for clinic pickup/administration. Please notify patient of results. Her partner needs to be notified and should be encouraged to follow up with his PCP or may come to [facility] for treatment. If the partner is unwilling or unable to come to the clinic, PDPT/EPT can be initiated. If the patient s partner has no allergies to antibiotics and does not have any abdominal pain, pelvic pain, or genital/groin pain, you may route a prescription for doxycycline to the partner s choice of pharmacy and mail a copy of the STD handouts to the patient or may mail to the partner for delivery to the patient. If the patient reports her partner is symptomatic he should be encouraged to seek treatment immediately and in person. The patient should have a follow up STD screen in 3 months which has been future ordered (if will need DENISHA in 3-4 weeks). 67377-1Jaiwtmgah encounter WfkuJK5990-69-80Q93:50:29Telepho ne encounter NoteTXT1.2.840.794813.1.13.104.2 .7.2.873453|[id number] e for patient [address] MsucKmnzkdfotMvmknqqmdYDYX584909 5934NRQOJLTVBVGZFOYRLONFFA7272-7 9:50:291.2.840.084991.1.72 .3.15|1.2.840.027029.1.13.104.2. 7.2.727879_[id number] [facility]"
[2023-07-27 10:49] LABS: SARS-CoV-2 Antigen Rapid Res Negative (Negative)
--- NOTE | 2023-07-27 11:55 | ER ---
Nurse's Notes [facility] Name: Deisi Bazan Age: 27 yrs Sex: Female : 1995 Arrival Date: 07/27/2023 Time: 10:06 Bed DX3 Private MD: Diagnosis: Acute upper respiratory infection, unspecified;Cough Presentation: 07/27 10:16 Chief complaint: Patient states: FLU LIKE S/S SINCE THU, SON TESTED FLU+ THURSDAY. bp Coronavirus screen: congestion, cough unrelated to allergies. Ebola Screen: No symptoms or risks identified at this time. Initial Sepsis Screen: Does the patient meet any 2 criteria? No. Patient's initial sepsis screen is negative. Does the patient have a suspected source of infection? No. Patient's initial sepsis screen is negative. Risk Assessment: Do you want to hurt yourself or someone else? Patient reports no desire to harm self or others. Onset of symptoms is unknown. 10:16 Method Of Arrival: Ambulatory bp 10:16 Acuity: KRUNAL 4 bp Triage Assessment: 10:17 General: Appears in no apparent distress. ill, Behavior is calm, cooperative, bp appropriate for age. Pain: Denies pain. 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 - Social history:: Smoking status: Patient denies any tobacco usage or history of. Screenin:00 [facility] ED Fall Risk Assessment (Adult) History of falling in the last 3 months, ap3 including since admission No falls in past 3 months (0 pts). Abuse screen: Denies threats or abuse. Nutritional screening: No deficits noted. Tuberculosis screening: No symptoms or risk factors identified. Vital Signs: 10:16 BP 141 / 101; Pulse 91; Resp 16; Temp 97.9; Pulse Ox 100% ; Weight 65.77 kg; Height 5 bp ft. 1 in. ; 10:16 Body Mass Index 27.40 (65.77 kg, 154.94 cm) bp ED Course: 10:10 Patient arrived in ED. im 10:10 Viktor Griffin DO is Attending Physician. ms3 10:17 Triage completed. bp 10:17 Arm band placed on. bp 11:54 Dimas Evans DO is Referral Physician. ms3 12:00 Patient has correct armband on for positive identification. Provided Education on: ap3 discharge instructions . 12:00 No provider procedures requiring assistance completed. Patient did not have IV access ap3 during this emergency room visit. Administered Medications: 10:26 Drug: Ibuprofen PO 600 mg PO once Route: PO; bp 12:01 Follow up: Response: No adverse reaction ap3 10:26 Drug: Tessalon Perle PO 200 mg PO once Route: PO; bp 12:01 Follow up: Response: No adverse reaction ap3 Medication: 12:01 VIS not applicable for this client. ap3 Outcome: 11:55 Discharge ordered by . ms3 12:00 Discharged to home ambulatory, ap3 12:00 Condition: good 12:00 Discharge instructions given to patient, Instructed on discharge instructions, follow up and referral plans. medication usage, Demonstrated understanding of instructions, follow-up care, medications, Prescriptions given X 1, 12:01 Patient left the ED. ap3 Signatures: Armin Sosa, RN RN Celsa Avina RN RN ap3 Viktor Griffin DO DO ms3 Lizbet Serrano
--- NOTE | 2023-07-27 11:56 | EDPHYS ---
Physician Documentation [facility] Name: Deisi Bazan Age: 27 yrs Sex: Female : 1995 Arrival Date: 07/27/2023 Time: 10:06 Bed DX3 Private MD: ED Physician Viktor Griffin HPI: 07/27 11:55 This 27 yrs old Female presents to ER via Ambulatory with complaints of Flu ms3 Symptoms. 11:55 27-year-old female with no past medical history presents to the emergency department ms3 for cough, congestion that began on Thursday. Patient's son was diagnosed with flu on Thursday. Patient denies any alleviating or inciting factors. Patient states she is having moderate discomfort. 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 - Social history:: Smoking status: Patient denies any tobacco usage or history of. ROS: 11:55 Constitutional: Negative for fever, and chills. ms3 11:55 Cardiovascular: Negative for chest pain, and palpitations. 11:55 MS/Extremity: Negative for injury and deformity, Skin: Negative for injury, rash, and discoloration, 11:55 ENT: Positive for sore throat, 11:55 Respiratory: Positive for cough, 11:55 All other systems are negative, Exam: 11:55 Constitutional: This is a well developed, well nourished patient who is awake, alert, ms3 and in no acute distress. Head/Face: Normocephalic, atraumatic. Neck: Trachea midline, no cervical lymphadenopathy. Supple, full range of motion without nuchal rigidity, or vertebral point tenderness. No Meningismus. Chest/axilla: Normal chest wall appearance and motion. Nontender with no deformity. Cardiovascular: Regular rate and rhythm with a normal S1 and S2. No gallops, murmurs, or rubs. Normal PMI, no JVD. No pulse deficits. Respiratory: Lungs have equal breath sounds bilaterally, clear to auscultation and percussion. No rales, rhonchi or wheezes noted. No increased work of breathing, no retractions or nasal flaring. Abdomen/GI: Soft, non-tender, with normal bowel sounds. No distension or tympany. No guarding or rebound. No evidence of tenderness throughout. Skin: Warm, dry with normal turgor. Normal color with no rashes, no lesions, and no evidence of cellulitis. MS/ Extremity: Pulses equal, no cyanosis. Neurovascular intact. Full, normal range of motion. Vital Signs: 10:16 BP 141 / 101; Pulse 91; Resp 16; Temp 97.9; Pulse Ox 100% ; Weight 65.77 kg; Height 5 bp ft. 1 in. ; 10:16 Body Mass Index 27.40 (65.77 kg, 154.94 cm) bp MDM: 11:06 Patient medically screened. ms3 11:55 Differential Diagnosis: Influenza Upper Respiratory Infection Viral Syndrome. Data ms3 reviewed: vital signs, nurses notes, lab test result(s), and as a result, I will discharge patient. I considered the following discharge prescriptions or medication management in the emergency department Medications were administered in the Emergency Department. See MAR. Counseling: I had a detailed discussion with the patient and/or guardian regarding the historical points, exam findings, and any diagnostic results supporting the discharge/admit diagnosis, lab results, the need for outpatient follow up, to return to the emergency department if symptoms worsen or persist or if there are any questions or concerns that arise at home. Special discussion: I discussed with the patient/guardian in detail that at this point there is no indication for admission to the hospital. It is understood, however, that if the symptoms persist or worsen the patient needs to return immediately for re-evaluation. ED course: Discussed labs with patient. Patient to follow-up with primary care physician and 2 to 3 days. Patient understands agrees with plan. All questions were answered. Return precautions discussed include worsening symptoms, or any other concerns.. 07/27 10:16 Order name: Flu; Complete Time: : ms3 07/27 10:16 Order name: SARS RAPID; Complete Time: 11: ms3 Administered Medications: 10: Drug: Ibuprofen PO 600 mg PO once Route: PO; bp 12:01 Follow up: Response: No adverse reaction ap3 10: Drug: Tessalon Perle PO 200 mg PO once Route: PO; bp 12:01 Follow up: Response: No adverse reaction ap3 Disposition Summary: 07/27/23 11:55 Discharge Ordered Notes: Location: Home ms3 Condition: Stable ms3 Diagnosis - Acute upper respiratory infection, unspecified ms3 - Cough ms3 Followup: ms3 - With: Dimas Evans DO - When: 1 - 2 days - Reason: Recheck today's complaints Discharge Instructions: - Discharge Summary Sheet ms3 - Upper Respiratory Infection, Adult ms3 - Cough, Adult ms3 Forms: - Medication Reconciliation Form ms3 - Thank You Letter ms3 - Antibiotic Education ms3 - Prescription Opioid Use ms3 - Patient Portal Instructions ms3 - Leadership Thank You Letter ms3 Prescriptions: - benzonatate 200 mg Oral capsule - take 1 capsule ORAL route 3 times per day as needed; 20 capsule; Refills: 0, ms3 Product Selection Permitted Signatures: Dispatcher [employer] Armin Yan RN RN bp Sims, Marcus, DO DO ms3 Celsa Hooper RN ap3
[2023-07-27 12:34] VITALS: BP 141/101; TEMP 97.9; O2SAT 100
== END ==
LOC: ER 10:06
DX: J06.9 Acute upper respiratory infection, unspecified (principal); Z11.52 Encounter for screening for COVID-19
CPT/HCPCS: 36415; 87804; 87811

== ENCOUNTER 2023-10-31 00:56 | Emergency (ER) | payer SELFPAY ==
--- OUTSIDE RECORDS SUMMARY | 2023-10-31 00:59 | XMS REPORT | Continuity of Care Document ---
Author Name Unknown Address [address] [facility] [address] [place] [address] [facility] thconnect Address [address] [facility] [address] [place] [address] Care Team Providers Care Junior Qa Analyst Name Role Phone LEYDI TYLER Primary Care Physician Unavailab le CINDA TAPIA Attending Clinician Unavaila ble NurseAnders Rmchlandy Rgv Cprit Obgyn Attending Clini clovis Unavailable Marcela WHSofie MOLINA Attending Clinician + SOFIE MEDRANO Attending Clinician Unavail able Pea-Rmchp Nurse Vst, Fp Nrpt Pills Class Attendi ng Clinician Unavailable Maeve Escalante Attending Clinician [phone] MAEVE ALVARADO Attending Clinician Unavailab le Doctor Unassigned, [place] Attending Clinician U Cinda Denson CNM Attending Clinician [phone] MARCELA Attending Clinician Unavailab DR SARA Corey Attending Clinicia n Unavailable MARCELA Admitting Clinician Unavailab DR SARA Corey Admitting Clinicia n Unavailable Payers Payer Name Policy Type Policy Number Effective Date Expirati on Date Source [facility] (MEDICAID REPLACEMENT - HMO) [id number] 2018 00:00:00 Problems Condition Name Condition Details Condition Category Status Onset Date Resolution Date Last Treatment Date Treating Clinician Comments Source Need for HPV vaccinatio n Need for HPV vaccinatio n Disease Active 2-08 00:00: 00 [facility] 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 No ADRIANNE noted on colposcop y bx. Needs repeat co-testin g in 12 months (12/2023) . [facility] Chlamydia trachomati s infection of lower genitourin alfonso sites Chlamydia trachomati s infection of lower genitourin alfonso sites Disease Active 01-22 00:00: 00 [facility] Obesity (BMI 30-39.9) Obesity (BMI 30-39.9) Disease Active 01-21 00:00: 00 [facility] History of abnormal cervical Pap smear History of abnormal cervical Pap smear Disease Active 01-20 00:00: 00 Overview: Formattin g of this note might be different from the original. pap negative with +HPV, see external records from [id number] ASCUS with HPV+, needs colpo [facility] History of bilateral tubal ligation History of bilateral tubal ligation Disease Active 01-20 00:00: 00 [facility] Allergies, Adverse Reactions, Alerts Allergy Name Allergy Type Status Severity Reaction(s) Onset Date Inactive Date Treating Clinician Comments Source NO KNOWN ALLERGIE S Drug Class Active [facility] Social History Social Habit Start Date Stop Date Quantity Comments Source Gender identity [facility] Alcohol intake 2023-02-05 00:00:2023-02-05 00:00:00 Lifetime non-drinker (finding) [facility] Tobacco use and exposure 2023-01-20 00:00:00 2023-01-20 00:00:00 Smokeless tobacco non-user [facility] History of Social function 2023-01-20 00:00:00 2023-01-20 00:00:00 [facility] Sex Assigned At 1995 00:00:00 1995 00:00:00 [facility] Smoking Status Start Date Stop Date Source Never smoked tobacco [facility] Medications Ordered Medication Name Filled Medication Name Start Date Stop Date Current Medication? Ordering Clinician Indication Dosage Frequency Signature (SIG) Comments Components Source metroNIDAZO LE 500 mg tablet 01-26 00:00: 00 02-03 04:59 :00 No [id number] 500mg Take 1 tablet by mouth in the morning and 1 tablet in the evening. Do all this for 7 days. [facility] doxycycline hyclate 100 mg capsule 01-22 00:00: 00 01-30 04:59 :00 No [id number] 100mg Take 1 capsule by mouth in the morning and 1 capsule in the evening. Do all this for 7 days. [facility] Immunizations Ordered Immunization Name Filled Immunization Name Date Status Comments Source 9 2023-03-05 00:00:00 Completed [facility] HPV9 2023-01-20 00:00:00 Completed [facility] HPV9 2023-01-20 00:00:00 Completed [facility] HPV9 2023-01-20 00:00:00 Completed [facility] HPV9 2023-01-20 00:00:00 Completed [facility] HPV9 2023-01-20 00:00:00 Completed [facility] HPV9 2023-01-20 00:00:00 Completed [facility] HPV9 2023-01-20 00:00:00 Completed [facility] HPV9 2023-01-20 00:00:00 Completed [facility] HPV9 2023-01-20 00:00:00 Completed [facility] HPV9 2023-01-20 00:00:00 Completed [facility] HPV9 2023-01-20 00:00:00 Completed [facility] HPV9 Unknown Completed [facility] HPV9 Unknown Completed [facility] TDAP Unknown Completed [facility] Flu Injectable MDCK Quadrivalent Unknown Completed [facility] HPV9 Unknown Completed [facility] Vital Signs Vital Name Observation Time Observation Value Comments S ource Body temperature 2023-08-06 20:01:00 36.11 Latoya [facility] Body temperature 2023-03-05 14:43:00 35.61 Latoya [facility] Systolic blood pressure 2023-02-05 18:52:00 126 mm[Hg] [facility] Diastolic blood pressure 2023-02-05 18:52:00 81 mm[Hg] [facility] Heart rate 2023-02-05 18:52:00 94 /[facility] Body temperature 2023-02-05 18:51:00 36.39 Latoya [facility] Respiratory rate 2023-02-05 18:51:00 20 /min [facility] Body height 2023-02-05 18:51:00 154.9 cm [facility] Body weight 2023-02-05 18:51:00 75.297 kg [facility] BMI 2023-02-05 18:51:00 31.37 kg/m2 [facility] Systolic blood pressure 2023-02-05 18:54:00 126 mm[Hg] [facility] Diastolic blood pressure 2023-02-05 18:54:00 81 mm[Hg] [facility] Heart rate 2023-02-05 18:54:00 94 /min [facility] Body temperature 2023-02-05 18:48:00 36.39 Latoya [facility] Respiratory rate 2023-02-05 18:48:00 20 /min [facility] Body height 2023-02-05 18:48:00 154.9 cm [facility] Body weight 2023-02-05 18:48:00 75.297 kg [facility] BMI 2023-02-05 18:48:00 31.37 kg/m2 [facility] Systolic blood pressure 2023-01-20 19:23:00 136 mm[Hg] [facility] Diastolic blood pressure 2023-01-20 19:23:00 80 mm[Hg] [place] [facility] Heart rate 2023-01-20 19:18:00 95 /min [facility] Body temperature 2023-01-20 19:18:00 36.72 Latoya [facility] Respiratory rate 2023-01-20 19:18:00 18 /min [facility] Body height 2023-01-20 19:18:00 154.9 cm [facility] Body weight 2023-01-20 19:18:00 74.39 kg [facility] BMI 2023-01-20 19:18:00 30.99 kg/m2 [facility] Procedures Procedure Date / Time Performed Performing Clinician Source GARDASIL 9 (HPV 9V) VACCINE 2023-08-06 20:00:52 Sofie Medrano [facility] GARDASIL 9 (HPV 9V) VACCINE 2023-03-05 14:42:42 Sofie Medrano [facility] POCT TEST 2023-02-05 18:53:00 Abelardo Alvarado [facility] POCT TEST 2023-02-05 18:50:00 Abelardo Alvarado [facility] AUTHORIZATION FOR RELEASE OF PHI 2023-02-04 05:01:00 Doctor Unassigned, Manderson [facility] CBC WITH DIFF 2023-01-20 20:25:00 Cinda Tapia [facility] HCV ANTIBODY 2023-01-20 20:25:00 [facility] 1/2 AG-AB WITH REFLEX 2023-01-20 20:25:00 Cinda Tapia [facility] PAP SMEAR-LIQUID BASED-CP 2023-01-20 20:25:00 Cinda Tapia [facility] SYPHILIS IGG/IGM 2023-01-20 20:25:00 Cinda Tapia [facility] GARDASIL 9 (HPV 9V) VACCINE 2023-01-20 19:30:17 Sofie Medrano [facility] Encounters Start Date/Time End Date/Time Encounter Type Admission Type Attending [facility] Care Facility Care Department Encounter ID Source 2023-08-06 13:00:00 2023-08-06 13:15:00 Nurse Visit Nurse, Anders Alfonso CprSofie Ragsdale [facility] MECHANICAL APPLICATIONS ENGINEER [facility] & CHILD [facility] .2.840.114 350.1.13.10 4.2.7.2.686 [id number] 107 [id number] [facility] 2023-08-06 13:00:00 2023-08-06 13:00:00 Outpatient R SOFIE MEDRANO [facility] [id number] [facility] 2023-08-04 14:00:00 2023-08-04 14:00:00 Outpatient R [facility] [id number] [facility] 2023-04-24 10:30:00 2023-04-24 10:30:00 Outpatient R SOFIE MEDRANO [facility] [id number] [facility] 2023-03-05 09:45:00 2023-03-05 10:00:00 Nurse Visit Nurse, Anders Alfonso CprSofie [place]agsdale [facility] MECHANICAL APPLICATIONS ENGINEER [facility] ..840.114 350.1.13.10 4.2.7.2.686 [id number] [facility] 2023-03-05 09:45:00 2023-03-05 09:45:15 Outpatient R SOFIE MEDRANO [facility] [id number] [facility] 2023-02-27 10:00:00 2023-02-27 10:00:00 Outpatient R [facility] [id number] [facility] 2023-02-25 14:00:00 2023-02-25 14:00:00 Outpatient R REGINA CINDA [facility] [id number] [facility] 2023-02-05 14:45:00 2023-02-05 15:00:00 Nurse Visit Pea-Rmchp Nurse Vst, Fp Nrpt Pills Class Maeve Alvarado [facility] MECHANICAL APPLICATIONS ENGINEER [facility] & CHILD [facility] 1..840.114 350.1.13.10 4.2.7.2.686 [id number] [facility] 2023-02-05 13:45:00 2023-02-05 14:57:26 Outpatient R MAEVE ALVARADO [facility] [id number] [facility] 2023-02-05 13:45:00 2023-02-05 14:57:26 Office Visit Maeve Alvarado [facility] MECHANICAL APPLICATIONS ENGINEER [facility] CHILD [facility] 1..840.114 350.1.13.10 4.2.7.2.686 [id number] [facility] 2023-02-05 14:45:00 2023-02-05 14:45:00 Outpatient R MAEVE ALVARADO [facility] [id number] [facility] 2023-02-04 09:00:00 2023-02-04 09:00:00 Outpatient R SOFIE MEDRANO [facility] [id number] [facility] 2023-02-04 00:00:00 2023-02-04 00:00:00 Orders Only Doctor Unassigned, Manderson [facility] 1..840.114 350.1.13.10 4.2.7.2.686 [id number] [facility] 2023-02-02 12:30:00 2023-02-02 12:30:00 Outpatient R SOFIE MEDRANO [facility] [id number] [facility] 2023-02-02 00:00:00 2023-02-02 00:00:00 Telephone Cinda Tapia [facility] MECHANICAL APPLICATIONS ENGINEER [facility] & CHILD [facility] 1.2.840.114 350.1.13.10 4.2.7.2.686 [id number] 107 [id number] [facility] 2023-01-30 00:00:00 2023-01-30 00:00:00 Telephone Regina Cinda Marely [facility] MECHANICAL APPLICATIONS ENGINEER [facility] & CHILD [facility] 1.2.840.114 350.1.13.10 4.2.7.2.686 [id number] 107 [id number] [facility] 2023-01-26 00:00:00 2023-01-26 00:00:00 Telephone Tia Tapiaa Marely [facility] MECHANICAL APPLICATIONS ENGINEER [facility] CHILD [facility] 1.2.840.114 350.1.13.10 4.2.7.2.686 [id number] 107 [id number] [facility] 2023-01-22 00:00:00 2023-01-22 00:00:00 Telephone Cinda Tapia [facility] MECHANICAL APPLICATIONS ENGINEER [facility] CH[facility] 1.2.840.114 350.1.13.10 4.2.7.2.686 [id number] 107 [id number] [facility] 2023-01-20 14:30:00 2023-01-20 15:27:01 Office Visit SumikeilaCinda [facility] MECHANICAL APPLICATIONS ENGINEER [facility] & CHILD [facility] 1.2.840.114 350.1.13.10 4.2.7.2.686 [id number] 107 [id number] [facility] 2023-01-20 14:30:00 2023-01-20 15:27:01 Outpatient R CINDA TAPIA [facility] [id number] [facility] 2021-10-17 06:39:00 2021-10-17 06:39:00 Outpatient GILMER URRUTIA [id number] [facility] 2021-03-13 12:39:00 2021-03-13 12:39:00 Outpatient DICLEMENTE_ [facility] [id number] [facility] 2019-12-09 12:55:00 2019-12-09 12:55:00 Outpatient DICLEMENTE_ [facility] [id number] [facility] 2019-10-04 11:48:00 2019-10-04 11:48:00 Outpatient DICLEMENTE_ [facility] [id number] [facility] 2019-09-27 02:44:00 2019-09-27 02:44:00 Outpatient DICLEMENTE_ [facility] [id number] [facility] 2019-08-25 06:01:00 2019-08-25 06:01:00 Outpatient DICLEMENTE_ [facility] [id number] [facility] 2018-07-13 20:25:00 2018-07-14 21:15:00 Outpatient SARA GARCIA [facility] [id number] [facility] Results Test Description Test Time Test Comments Results Result Co mments Source [facility] [id number] 18:50:00* Test Item Value Reference Range Interpretation Comme nts POCT PREG (test code = 1605) Negative On board controls acceptable with C Line (test code = 3574) Yes POCT PREG LOT # (test code = 3575) POCT PREG TEST DATE ( test code = 3576[id number] 18:50:00* Test Item Value Reference Range Interpretation Comme nts POCT PREG (test code = 1605) Negative On board controls acceptable with C Line (test code = 3574) Yes POCT PREG LOT # (test code = 3575) POCT PREG TEST DATE ( test code = 3576) [facility] ONLY - SYPHILIS [id number] 17:24:34* Test Item Value Reference Range Interpretation Comme [facility] Syphilis IgG/IgM (test code = 51011-7) Non-reactive Non-reactive EVAN (test code = EVAN) Non-reactive - No serologic evidence of T. pallidum infection. Cannot exclude incubating or early syphilis. Submit a second specimen in 2-4 weeks if syphilis is clinically suspected. Equivocal - Further testing to follow. Reactive - Further testing to follow. Lab Interpretation (test code = 99627-8) Normal [facility] ONLY - SYPHILIS [id number] 17:24:34* Test Item Value Reference Range Interpretation Comme [facility] Syphilis IgG/IgM (test code = 57533-5) Non-reactive Non-reactive EVAN (test code = EVAN) Non-reactive - No serologic evidence of T. pallidum infection. Cannot exclude incubating or early syphilis. Submit a second specimen in 2-4 weeks if syphilis is clinically suspected. Equivocal - Further testing to follow. Reactive - Further testing to follow. Lab Interpretation (test code = 16459-2) Normal [facility] 1/2 AG-AB WITH [id number] 05:42:44* Test Item Value Reference Range Interpretation Comme [facility] HIV Semi-quantitative (test code = 87321-3) 0.10 Negative EVAN (test code = EVAN) Non-reactive for HIV-1 antigen and HIV-1/HIV-2 antibodies. ?No laboratory evidence of HIV infection. ?Repeat in 2-4 weeks if acute HIV infection is suspected. [facility] 1/2 AG-AB WITH [id number] 05:42:44* Test Item Value Reference Range Interpretation Comme [facility] HIV Semi-quantitative (test code = 45005-8) 0.10 Negative EVAN (test code = EVAN) Non-reactive for HIV-1 antigen and HIV-1/HIV-2 antibodies. ?No laboratory evidence of HIV infection. ?Repeat in 2-4 weeks if acute HIV infection is suspected. [facility] [id number] 05:42:43* Test Item Value Reference Range Interpretation Comme [facility] HCV Ab (test code = 14589-2) Negative HCV Semi-Quantitative (test code = 60055-6) 0.02 [facility] [id number] 05:42:43* Test Item Value Reference Range Interpretation Comme nts HCV Ab (test code = 96937-2) Negative HCV Semi-Quantitative (test code = 44392-6) 0.02 [facility] WITH [id number] 04:44:19* Test Item Value Reference Range Interpretation [...] 33.6 g/dL 31.6-35.1 RDW-SD (test code = 48203-8) 37.4 fL 39.0-49.9 L RDW-CV (test code = 788-0) 12.3 % 12.0-15.5 PLT (test code = 777-3) 358 See_Comment [Automated messa ge] The system which generated this result transmitted reference range: 166 - 358 10*3/?L. The reference range was not used to interpret this result as normal/abnormal. MPV (test code = 97320-5) 9.5 fL 9.5-12.9 NRBC/100 WBC (test code = 9563524297) 0.0 See_Comment [Automated [employer]] The system which generated this result transmitted reference range: 0.0 - 10.0 /100 WBCs. The reference range was not used to interpret this result as normal/abnormal. NRBC x10^3 (test code = 1378074573) See_Comment [Automated messa ge] The system which generated this result transmitted reference range: 10*3/?L. The reference range was not used to interpret this result as normal/abnormal. GRAN MAT (NEUT) % (test code = 770-8) 52.4 % IMM GRAN % (test code = 7927639554) 0.40 % LYMPH % (test code = 736-9) 38.4 % MONO % (test code = 5905-5) 5.9 % EOS % (test code = 713-8) 2.4 % BASO % (test code = 706-2) 0.5 % GRAN MAT x10^3(ANC) (test code = 3529312686) 4.38 10*3/uL 1.88-7.09 IMM GRAN x10^3 (test code = 4050332162) 0.03 10*3/uL 0.00-0.06 LYMPH x10^3 (test code = 731-0) 3.21 10*3/uL 1.32-3.29 MONO x10^3 (test code = 742-7) 0.49 10*3/uL 0.33-0.92 EOS x10^3 (test code = 711-2) 0.20 10*3/uL 0.03-0.39 BASO x10^3 (test code = 704-7) 0.04 10*3/uL 0.01-0.07 Lab Interpretation (test code = 44439-0) Abnormal [facility] WITH [id number] 04:44:19* Test Item Value Reference Range Interpretation [...] 33.6 g/dL 31.6-35.1 RDW-SD (test code = 24165-6) 37.4 fL 39.0-49.9 L RDW-CV (test code = 788-0) 12.3 % 12.0-15.5 PLT (test code = 777-3) 358 See_Comment [Automated [employer] ge] The system which generated this result transmitted reference range: 166 - 358 10*3/?L. The reference range was not used to interpret this result as normal/abnormal. MPV (test code = 09261-7) 9.5 fL 9.5-12.9 NRBC/100 WBC (test code = 4425971091) 0.0 See_Comment [Automated [employer] ssage] The system which generated this result transmitted reference range: 0.0 - 10.0 /100 WBCs. The reference range was not used to interpret this result as normal/abnormal. NRBC x10^3 (test code = 5441609204) See_Comment [Automated [employer]] The system which generated this result transmitted reference range: 10*3/?L. The reference range was not used to interpret this result as normal/abnormal. GRAN MAT (NEUT) % (test code = 770-8) 52.4 % IMM GRAN % (test code = 3587898852) 0.40 % LYMPH % (test code = 736-9) 38.4 % MONO % (test code = 5905-5) 5.9 % EOS % (test code = 713-8) 2.4 % BASO % (test code = 706-2) 0.5 % GRAN MAT x10^3(ANC) (test code = 5770998217) 4.38 10*3/uL 1.88-7.09 IMM GRAN x10^3 (test code = 9415336127) 0.03 10*3/uL 0.00-0.06 LYMPH x10^3 (test code = 731-0) 3.21 10*3/uL 1.32-3.29 MONO x10^3 (test code = 742-7) 0.49 10*3/uL 0.33-0.92 EOS x10^3 (test code = 711-2) 0.20 10*3/uL 0.03-0.39 BASO x10^3 (test code = 704-7) 0.04 10*3/uL 0.01-0.07 Lab Interpretation (test code = 90997-3) [facility]WW*2018-07-14 09:42:26 OBSTETRIC ULTRASOUND Location code: [id number] HISTORY: Threatened premature labor - not deliveredGA [...] 7.1 cm 36 weeks 3 days ratios arewithin normal limits. weight estimateWeight: 2834 gramsWT%: 64% for 35 weeks 6 daysAnatomic survey reveals no abnormality of the intracranial contents,four- chamber heart, stomach, bilateral kidneys, urinary bladder, 3 vessel cord,cord insertion, spine, and extremities.IMPRESSION: 1. Single intrauterine in vertex presentation with an approximatesonographic age of 35 weeks and 6 days. 2. No abnormality identified.CBC (INCLUDES AUTOMATED DIFFERENTIAL)*[id number] 21:34:00* Test Item Value Reference Range Interpretation [...] Note Provider Source 2023-02-03 10:26:19 urePiqMqSVdyK+N+qzSP N+V4KC+YVTLQ 1YqpZ42CDZMBuUtvyGSKGQyrbjT5x2Qi 5507-96-06K42:26:19 Patient wanted to see when she needed to have her DENISHA. Informed patient she is scheduled for DENISHA on 04/24/2023, verbalized understanding. 82775-3Yjnjskuzf encounter SzffFM1958-95-63J49:30:08Telepho ne encounter NoteTXT1.2.840.763408.1.13.104.2 .7.2.470582|[id number] e for patient fesg71309-0KivnKQ673029274Ykizcd irving Sandoval [address] QfzuXqxyrqijsZzxuxgmvzZZCG955285 6276GCGBPWKZKKWPWFOCDLGFTD5003-7 02-03T10:30:081.2.840.712037.1.72 .3.15|1.2.840.260370.1.13.104.2. 7.2.727879_[id number] Ariana Sandoval [facility] 2023-02-03 10:09:36 kCPaDzOKDAxfUOUprYrL wholesale account executive/wD7TPxBQL atloImcmL2oQlMnhjpaekmlckpjOSCnz 7079-46-37O83:09:36 Patient is returning kianna call, please call patient back in regards to this encounter. 37779-2Znflluuvi encounter MlxrDS1974-22-64D61:10:10Telepho ne encounter NoteTXT1.2.840.264323.1.13.104.2 .7.2.598393|[id number] e for patient flpu34117-7FpbtAP756135250Puyfdo a [address] 3046XDGFABWJBJQGBDGKPLTCFQ8406-8 8-08T10:10:101.2.840.501432.1.72 .3.15|1.2.840.435994.1.13.104.2. 7.2.727879_[id number] Nisha Haas [facility] 2023-02-03 10:07:56 fKNLrdptcN/B4fdLegkq Bq0CoMFXbPQs yYEHOtYrMx2ImSuXmlQn/FCCnllXIucW 0822-01-14Y31:07:56 Deisi Bazan is a 27 year old femalePt returning nurse call. Connected to clinic 78282-7Nemylmfxk encounter AvunYN6843-64-79C61:08:30Telepho ne encounter NoteTXT1.2.840.700859.1.13.104.2 .7.2.785894|[id number] e for patient [id number] Bazan [address]TX[address] 9907APIVKUFCLNVINJETFOAZJD1254-3 8-08T10:08:301.2.840.948059.1.72 .3.15|1.2.840.136418.1.13.104.2. 7.2.727879_[id number] Taina Sterling [facility] 2023-02-03 09:10:21 U7nXDpbqLqFRI4KVlwX4 rTLZVGBS5xwd GU3cAEtyPs+7XI67ormgz3jnB08mF+LJ 5756-75-28A95:10:21 Attempted to call patient, no answer, [place]. 61513-9Qmdzyydlx encounter KhhfHH2042-25-85O80:10:37Telepho ne encounter NoteTXT1.2.840.033578.1.13.104.2 .7.2.879711|[id number] e for patient ojas73082-5VjaeOWCVKZHIPY[address]TX[address] 6944ENETIHCKOJCTLJTYNGBGGW7649-4 09:10:371.2.840.669330.1.72 .3.15|1.2.840.428115.1.13.104.2. 7.2.727879_[id number] [facility] 2023-02-03 09:09:25 trnSHtUl5jzPhWm9FKco bvK+01rOsd2g 2Ofs6k/aAKAhUhG4zWc66bIwjskMzWyd 8943-47-07E45:09:25 Noted. 68884-2Wgfbtjwci encounter AwntOY6549-46-33S59:09:35Telepho ne encounter NoteTXT1.2.840.475392.1.13.104.2 .7.2.141347|[id number] e for patient suvj28284-1BcaiTC343226154Rylesb la Garcia [address] 7554NCBBFGKUYOJSCMTCNSMBXQ1753-3 09:09:351.2.840.993618.1.72 .3.15|1.2.840.999282.1.13.104.2. 7.2.727879_[id number] Ariana Sandoval APNS [facility] 2023-02-02 16:47:51 uWp59r6UFHXiKBto+qrk gpBJiG3ExSnr 2ihu+PX2oeEI4eS8djK3UUC0mRMrxgZ0 4219-10-09X08:47:51 Patient will call us back to schedule .02/02/23 98244-4Erdsxddyj encounter LeklAY1181-21-04Y42:48:17Telepho ne encounter NoteTXT1.2.840.264263.1.13.104.2 .7.2.736690|[id number] e for patient lhzc96037-1RccvGQ34891797Ojcwywu ale [address] DpajDdsmrvprmIeauifknpIPMR133225 6047OIAYPKLWHBQNFVOUOUFBWY7251-4 6:48:171.2.840.799032.1.72 .3.15|1.2.840.164096.1.13.104.2. 7.2.727879_[id number] Flory Fitch [facility] 2023-02-02 16:38:04 TYrm4CwIJa7DgvT91fum e0bLPEZpZYCh u4m9p9XCP0TMNuPAxTmhdcwj+5/rxkM/ 8295-63-55G63:38:04 Deisi Bazan is a 27 year old femalePt has questions regarding the prescribed medication.Please call [phone] (home) 30214-9Pwmgxikdt encounter TusdKJ6420-50-68D88:38:55Telepho ne encounter NoteTXT1.2.840.150592.1.13.104.2 .7.2.575663|[id number] e for patient utbh30376-2JczeJOUBWQIEUA[address] 7756HGYJPMXILKFGQCDDZFERUQ0793-8 6:38:551.2.840.587684.1.72 .3.15|1.2.840.294075.1.13.104.2. 7.2.727879_[id number] [facility] 2023-02-02 08:13:19 5o1zn4DqZLdxQ6iNeiHM iusa+S8qqA79 9Qm8gFYXEnMv4SrlwvqayAuGwN+rhMzJ 4734-65-11M45:13:19 Called pt, discussed pap smear results and poc. Pt scheduled for colpo. Routed to pss for financial screening appt.Haleigh Lea RN 02/02/23 8:13 AM 62647-4Glibfsziq encounter VzdgEB7411-17-92K89:14:32Telepho ne encounter NoteTXT1.2.840.079066.1.13.104.2 .7.2.443694|[id number] e for patient xuxg69593-1VshiQW238428470Jgpnfl sobeida Lea RN[address] 6503NKXGOYZCRHQZUZOEUJQXEF9250-8 8-07T08:14:321.2.840.166265.1.72 .3.15|1.2.840.654440.1.13.104.2. 7.2.727879_[id number] Haleigh Lea RN [facility] 2023-01-30 16:59:44 OFwQ+Af+2UszhHufyjMA D7GiKlYRGXNL rqq5jMYU+hWLQv915PHo4naTZ6RSn7BF 5294-19-62O30:59:44 Patient returning missed call 78420-7Srdmajyba encounter AfgoPU0166-45-55Y47:00:04Telepho ne encounter NoteTXT1.2.840.346650.1.13.104.2 .7.2.650693|[id number] e for patient slke62699-6FaesFF908499030Eksedr coco De Jesus [address] 1896UOVXTIJKDLCKKXRCOEHVMF3812-1 :00:041.2.840.732166.1.72 .3.15|1.2.840.011151.1.13.104.2. 7.2.727879_[id number] Kinjal Esparzais [facility] 2023-01-30 16:21:51 rvx3ZhMqWI2uNK2udj+2 uI9rzGRmnjb6 9QLz+D9Qba/wKmbE8MR3xmA6mq3z/Cedric/ 8378-59-23N67:21:51 Called pt, no answer. Left vm.Haleigh Lea RN 01/30/23 4:22 PM 23772-9Aaxiaxdiv encounter DvwnGQ4062-59-83M04:22:17Telepho ne encounter NoteTXT1.2.840.863855.1.13.104.2 .7.2.740168|[id number] e for patient dwkb24827-4GqruOTDQINLGEH[address] 7367AJYYKLQRGBQQYXVVEUBNIT1245-6 6:22:171.2.840.491418.1.72 .3.15|1.2.840.098512.1.13.104.2. 7.2.727879_[id number] [facility] 2023-01-30 14:08:07 LnUC1x87X7mNhxdLtYaC a+NdL/FNL5DV O6CnrdV7rB6Pq0FX9Pb7j3qG/WoVp429 9546-49-89D34:08:07 Please call patient and let her know she needs colpo for ASCUS with +HPV. 59822-6Lmtjdqmvd encounter VyctDH1451-89-84X87:08:45Telepho ne encounter NoteTXT1.2.840.478086.1.13.104.2 .7.2.617354|[id number] e for patient ekoj32459-7GgftYEONYPANEN[address] HrkbEapzbfbfpGrobrlmayYVQN127310 3608UJRCPDKJHVSLBYBBPCPPPI6231-9 8-04T14:08:451.2.840.700301.1.72 .3.15|1.2.840.481142.1.13.104.2. 7.2.727879_[id number] [facility] 2023-01-26 09:59:19 KAQSTPCBXs3Rfm4aUQDV x20Gl1QNkk8x 13oiFHqq7mYJZwnqLq8DQ/OqVSAa54Lx 2423-66-12Y57:59:19 Called patient, notified positive for BV. Educated patient on antibiotics, daily probiotics, and BV prevention measures. Pt verbalized understanding.RUBIN BLACKWOOD RN 01/26/2023 9:59 AM 07364-8Pepfrrhkf encounter EpglAK4034-15-21O26:59:28Telepho ne encounter NoteTXT1.2.840.579844.1.13.104.2 .7.2.276019|[id number] e for patient itwr57004-8ArikARRRPWBYWX[address] 0832PLRPMQCDMHHPDIMRWUOZFT6698-8 01-26T09:59:281.2.840.627762.1.72 .3.15|1.2.840.375433.1.13.104.2. 7.2.727879_[id number] [facility] 2023-01-26 09:34:29 ByxmG0TJ98lWxzJTayrv DxAw8l2v10Ix UEXd/v6AOzx+GWNJpTT/eJv01NKEveaf 9394-55-85V84:34:29 Please call patient and let her know I ex flagyl to pharmacy for BV. 30391-9Btmkqonpy encounter FkhcSA2415-49-56M78:35:43Telepho ne encounter NoteTXT1.2.840.651944.1.13.104.2 .7.2.977327|[id number] e for patient wiuu80292-0DwecIIIQYYCJES[address] 5532ZLLXPIVIMVVSWPLWOSWZMJ8334-5 01-26T09:35:431.2.840.139424.1.72 .3.15|1.2.840.964246.1.13.104.2. 7.2.727879_[id number] [facility] 2023-01-23 07:54:28 3kCGZl97rGIfyQVIne3Y BlLKGgBOFcHn 2WBKBIYUk4gXFfay6sW2SyKwBg1fpmF2 8925-64-32A09:54:28 Notified the patient of her positive STI results chlamydia.Notified the patient her medication has been sent to her pharmacy on file. Educated patient she should complete the entire course, advised patient to practice safe sex practices and to remain abstinent for at least 1-2 weeks post treatment.Patient desires to have partner treated, call placed to pharmacy [facility] in [facility] given for Doxycycline 100 mg PO BID x 7 days for Name of partner:Meño Cayden:[birth year]01/1997NKDA:Phone number:[phone] std pamphlet for partner education. Patient declinedstd pamphlet to be mailed to partner.Advised patient on HIV testing if she has not recently been tested.Advised DENISHA appointment in 3 months. Pt verbalized understanding. 92225-4Hrlbysoup encounter WcciAP5402-44-21U66:53:03Telepho ne encounter NoteTXT1.2.840.439751.1.13.104.2 .7.2.061647|[id number] e for patient ooku824457425Jyhcefwa Garcia [address] TateJtdlcyorbWhtahcttaSOOF175614 1943OMVHCEAIEXGTKAPYJRMTGJ1256-5 7-28T09:53:031.2.840.948124.1.72 .3.15|1.2.840.380450.1.13.104.2. 7.2.727879_[id number] Ariana Sandoval LVN [facility] 2023-01-22 19:47:17 Erh3rlC49RfKlYwHxER4 Zh8whLVmoFAV 0p3cXsxdd9I4lF/Jessika/med/whVWnDg4ECB 8341-21-31P66:47:17 Pt tested positive for chlamydia. Prescription for doxycycline routed to her pharmacy on file/ordered for clinic pickup/administration. Please notify patient of results. Her partner needs to be notified and should be encouraged to follow up with his PCP or may come to [facility] for treatment. If the partner is [...] (if will need DENISHA in 3-4 weeks). 49150-7Ymsizpree encounter RjcxLB9503-81-84O55:50:29Telepho ne encounter NoteTXT1.2.840.982360.1.13.104.2 .7.2.787069|[id number] e for patient [address] UjmoXtfpcwoicSatebwilxNAKN066065 8377CLSTPTJNPPIGXOTGEGZWKY8161-2 9:50:291.2.840.923952.1.72 .3.15|1.2.840.343168.1.13.104.2. 7.2.727879_[id number] [facility]"
[2023-10-31] MEDS ORDERED: KETOROLAC 30 MG/ML INJ ONE (01:31)
[2023-10-31] MEDS ORDERED: NA CHLORIDE 0.9% 1,000 ML ONE (01:31)
[2023-10-31 02:48] LABS: Absolute Eosinophils 0.4 K/uL (0-0.5); Absolute Lymphocytes (CBC) 4.4 K/uL (0.7-4.9); Absolute Monocytes 0.5 K/uL (0.1-1.3); Absolute Neutrophil 4.2 K/uL (1.8-8.0); Basophils % 0.5 % (0-1.3); Eosinophils % 3.7 % (0-4.4); Hemoglobin 12.9 g/dL (12.0-15.0); Lymphocytes % 45.8 % (15.3-44.8); MCH 29.4 pg (27.0-35.0); MCHC 34.9 g/dL (32.0-36.0); MCV 84.3 fL (80-100); MPV 7.8 fL (7.6-11.3); Monocytes % 5.7 % (3.3-12.3); Neutrophils % 44.3 % (41.7-73.7); Nucleated Red Blood Cells % 0.2 % (0-0); Platelets 376 thou/uL (152-406); RBC Red Blood Cell Count 4.39 M/uL (3.86-4.86); Red Cell Distribution Width 13.2 % (12.1-15.2)
[2023-10-31 02:52] LABS: Urine Bacteria <20 /HPF (<20); Urine Culture Reflex Order NOT NEEDED; Urine Micro Reflex YN NO BILL MICROSCOPIC; Urine Mucus 1+ /HPF (None Seen); Urine Yeast (Budding) Moderate /HPF (None Seen)
[2023-10-31 03:06] LABS: Albumin 3.8 g/dL (3.4-5.0); Anion Gap 8.5 mEq/L (5.0-15.0); Bilirubin Total 0.3 mg/dL (0.2-1.0); Globulin 3.7 g/dL (2.3-3.5); Potassium 3.5 mEq/L (3.5-5.1); Protein, Total 7.5 g/dL (6.4-8.2)
[2023-10-31] MEDS ORDERED: FENTANYL CITR 100 MCG/2 ML ONE (03:34)
[2023-10-31] MEDS ORDERED: METHOCARBAMOL 1,000 MG/10 ML VIAL ONE (03:34)
[2023-10-31] MEDS ORDERED: NA CHLORIDE 0.9% 100 ML ONE (03:34)
--- NOTE | 2023-10-31 05:28 | ER ---
Nurse's Notes [facility] Name: Deisi Bazan Age: 27 yrs Sex: Female : 1995 Arrival Date: 10/31/2023 Time: 00:56 Bed 7 Private MD: Diagnosis: Low back pain;UTI/ Urinary tract infection, site not specified;Other cholelithiasis without obstruction Presentation: 10/30 01:03 Chief complaint: Patient states: I am having pain on my tail bone for the past 2 weeks. jb4 I have tried OTC remedies and it has not helped. Coronavirus screen: At this time, the client does not indicate any symptoms associated with coronavirus-19. Ebola Screen: No symptoms or risks identified at this time. Initial Sepsis Screen: Does the patient meet any 2 criteria? HR > 90 bpm. Yes Does the patient have a suspected source of infection? No. Patient's initial sepsis screen is negative. Risk Assessment: Do you want to hurt yourself or someone else? Patient reports no desire to harm self or others. Onset of symptoms was October 31, 2023. Transition of care: patient was not received from another setting of care. 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 - Infectious Disease History:: Denies. - Social history:: Smoking status: Patient denies any tobacco usage or history of. Screenin:15 [facility] ED Fall Risk Assessment (Adult) History of falling in the last 3 months, km8 including since admission No falls in past 3 months (0 pts) Confusion or Disorientation No (0 pts) Intoxicated or Sedated No (0 pts) Impaired Gait No (0 pts) Mobility Assist Device Used No (0 pt) Altered Elimination No (0 pt) Score/Fall Risk Level 0 - 2 = Low Risk Oriented to surroundings, Maintained a safe environment, Educated pt \T\ family on fall prevention, incl call for assistance when getting out of bed, Assessed \T\ reinforced patient's understanding of fall precautions. Abuse screen: Denies threats or abuse. Denies injuries from another. Nutritional screening: No deficits noted. Tuberculosis screening: No symptoms or risk factors identified. Assessment: 01:15 General: Appears in no apparent distress. uncomfortable, Behavior is calm, cooperative, km8 appropriate for age. Pain: Complains of pain in coccyx Pain currently is 7 out of 10 on a pain scale. Quality of pain is described as aching, sharp. Neuro: Level of Consciousness is awake, alert, obeys commands, Oriented to person, place, time, situation. Cardiovascular: Denies chest pain, shortness of breath, Patient's skin is warm and dry. Respiratory: Airway is patent Respiratory effort is even, unlabored, Respiratory pattern is regular, symmetrical. GI: No signs and/or symptoms were reported involving the gastrointestinal system. : No signs and/or symptoms were reported regarding the genitourinary system. EENT: No signs and/or symptoms were reported regarding the EENT system. Derm: Skin is intact, is healthy with good turgor, Skin is dry, Skin is pink, warm \T\ dry. normal, Skin temperature is warm. Musculoskeletal: Range of motion: Reports pain in coccyx. 03:19 Reassessment: Patient and/or family updated on plan of care and expected duration. Pain tm6 level reassessed. Patient is alert, oriented x 3, equal unlabored respirations, skin warm/dry/pink. 05:18 Reassessment: Patient and/or family updated on plan of care and expected duration. Pain tm6 level reassessed. Patient is alert, oriented x 3, equal unlabored respirations, skin warm/dry/pink. Patient states feeling better. Vital Signs: 01:03 BP 147 / 106; Pulse 97; Resp 16; Temp 98.4(O); Pulse Ox 97% on R/A; Weight 63.5 kg (R); jb4 Height 5 ft. 1 in. (R); Pain 8/10; 03:19 BP 92 / 70; Pulse 77; Pulse Ox 97% on R/A; Pain 7/10; tm6 03:57 Pain 5/10; tm6 04:08 BP 112 / 80; Pulse 71; Pulse Ox 97% on R/A; tm6 04:08 Pain 5/10; tm6 05:18 BP 112 / 68; Pulse 74; Pulse Ox 98% on R/A; Pain 4/10; tm6 01:03 Body Mass Index 26.45 (63.50 kg, 154.94 cm) jb4 01:03 Pain Scale: Adult jb4 03:19 Pain Scale: Adult tm6 03:57 Pain Scale: Adult tm6 04:08 Pain Scale: Adult tm6 05:18 Pain Scale: Adult tm6 [place] Coma Score: 01:15 Eye Response: spontaneous(4). Motor Response: obeys commands(6). Verbal Response: km8 oriented(5). Total: 15. ED Course: 00:57 Patient arrived in ED. jj6 00:58 Jorge Man PA is PHCP. cp 00:58 Jorge Reyes MD is Attending Physician. cp 01:05 Triage completed. jb4 01:05 Arm band placed on right wrist. jb4 01:11 Madeline Botello, BRITANY is Primary Nurse. km8 01:15 Patient has correct armband on for positive identification. Placed in gown. Bed in low km8 position. Call light in reach. Side rails up X 1. Pulse ox on. NIBP on. Warm blanket given. 01:15 Provided Education on: use of call giang. tm6 01:51 CBC with Diff Sent. km8 01:51 CMP Sent. km8 01:51 Lipase Sent. km8 01:51 Test, Urine Sent. km8 01:51 Urine Microscopic Only Sent. km8 01:51 Initial lab(s) drawn, by ks, sent to lab. Urine collected: clean catch specimen, clear. km8 Inserted saline lock: 20 gauge in right antecubital area, using aseptic technique. Blood collected. 02:40 CT Abd/Pelvis - IV Contrast Only In Process Unspecified. EDMS 05:19 No provider procedures requiring assistance completed. km8 05:30 Ricardo Lai MD is Referral Physician. adam 05:40 IV discontinued, intact, bleeding controlled, No redness/swelling at site. Pressure tm6 dressing applied. Administered Medications: 01:51 Drug: NS 0.9% IV 1000 ml IV at 999 ml/hr Per protocol; 1000 mL bolus Route: IV; Rate: km8 999 ml/hr; Site: right antecubital; 03:50 Follow up: IV Status: Completed infusion; IV Intake: 1000ml km8 02:52 Drug: Ketorolac IVP 15 mg IVP once Route: IVP; Site: right antecubital; km8 03:10 Follow up: Response: No adverse reaction km8 03:45 Drug: fentaNYL (PF) IVP 25 mcg IVP once Route: IVP; Site: right antecubital; tm6 03:57 Follow up: Pain 5/10 Adult; Response: Pain is decreased tm6 03:45 Drug: Methocarbamol IVPB 1 grams IVPB once over 1 hrs; (mix in NS 100 mL) Route: IVPB; tm6 Infused Over: 1 hrs; Site: right antecubital; Medication: 01:15 VIS not applicable for this client. km8 Intake: 03:50 IV: 1000ml; Total: 1000ml. km8 Outcome: 05:28 Discharge ordered by . adam 05:40 Discharged to home ambulatory, with significant other, tm6 05:40 Condition: stable 05:40 Discharge instructions given to patient, Instructed on discharge instructions, follow up and referral plans. medication usage, Demonstrated understanding of instructions, follow-up care, medications, Prescriptions given X 3, 05:44 Patient left the ED. tm6 Signatures: Dispatcher [employer] EDMS Jorge Reyes MD MD cha Page, Corey, PA PA Giovanni Escobedo, RN RN jb4 Maeve Barney Katie, BRITANY RN km8 Justin Higuera RN RN tm6
--- NOTE | 2023-10-31 05:28 | EDPHYS ---
Physician Documentation [facility] Name: Deisi Bazan Age: 27 yrs Sex: Female : 1995 Arrival Date: 10/31/2023 Time: 00:56 Bed 7 Private MD: ED Physician Jorge Reyes HPI: 10/30 01:24 This 27 yrs old Female presents to ER via Ambulatory with complaints of Low cp Back Pain. 01:24 The patient presents with pain that is acute, with no known mechanism of injury. The cp symptoms are located in the low back, coccyx area. The pain does not radiate. The problem was sustained from unknown cause. Onset: The symptoms/episode began/occurred 2 week(s) ago. Associated signs and symptoms: Pertinent negatives: abdominal pain, constipation, dysuria, fever, hematuria, numbness, tingling, weakness. Severity of symptoms: in the emergency department the symptoms are unchanged. 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 - Infectious Disease History:: Denies. - Social history:: Smoking status: Patient denies any tobacco usage or history of. ROS: 01:25 Constitutional: Negative for body aches, chills, fever, cp 01:25 Abdomen/GI: Negative for abdominal pain, vomiting, diarrhea, constipation, 01:25 Back: Positive for pain at rest, pain with movement, worse with sitting, 01:25 Respiratory: Negative for cough, shortness of breath, wheezing, cp 01:25 Eyes: Negative for injury, pain, redness, and discharge, cp 01:25 ENT: Negative for drainage from ear(s), ear pain, sore throat, difficulty swallowing, difficulty handling secretions, 01:25 Cardiovascular: Negative for chest pain, 01:25 : Negative for urinary symptoms, pelvic pain, flank pain, 01:25 Neuro: Negative for altered mental status, headache, weakness, 01:25 All other systems are negative, Exam: 01:30 Constitutional: The patient appears in no acute distress, alert, awake, non-toxic, well cp developed, well nourished, 01:30 Head/Face: Normocephalic, atraumatic. cp 01:30 Eyes: Periorbital structures: appear normal, Conjunctiva: normal, no exudate, no injection, Sclera: no appreciated abnormality, Lids and lashes: appear normal, bilaterally, 01:30 ENT: External ear(s): are unremarkable, Nose: is normal, Mouth: Lips: moist, Oral mucosa: pink and intact, moist, Posterior pharynx: Airway: no evidence of obstruction, patent, 01:30 Chest/axilla: Inspection: normal, 01:30 Cardiovascular: Rate: normal, Rhythm: regular, 01:30 Respiratory: the patient does not display signs of respiratory distress, Respirations: cp normal, no use of accessory muscles, no retractions, labored breathing, is not present, Breath sounds: are clear throughout, no decreased breath sounds, no stridor, no wheezing, 01:30 Abdomen/GI: Inspection: abdomen appears normal, Palpation: abdomen is soft and cp non-tender, in all quadrants, 01:30 Back: pain, that is moderate, of the lumbar area, ROM is painful, Straight leg raises: of both lower extremities does not illicit pain, 01:30 Skin: cellulitis, is not appreciated, no rash present. no abscess palpated in coccyx area. 01:30 Neuro: Orientation: to person, place \T\ time. Mentation: is normal, Motor: moves all fours, strength is normal, Sensation: is normal, Gait: is steady, at a normal pace, without difficulty, Vital Signs: 01:03 BP 147 / 106; Pulse 97; Resp 16; Temp 98.4(O); Pulse Ox 97% on R/A; Weight 63.5 kg (R); jb4 Height 5 ft. 1 in. (R); Pain 8/10; 03:19 BP 92 / 70; Pulse 77; Pulse Ox 97% on R/A; Pain 7/10; tm6 03:57 Pain 5/10; tm6 04:08 BP 112 / 80; Pulse 71; Pulse Ox 97% on R/A; tm6 04:08 Pain 5/10; tm6 05:18 BP 112 / 68; Pulse 74; Pulse Ox 98% on R/A; Pain 4/10; tm6 01:03 Body Mass Index 26.45 (63.50 kg, 154.94 cm) jb4 01:03 Pain Scale: Adult jb4 03:19 Pain Scale: Adult tm6 03:57 Pain Scale: Adult tm6 04:08 Pain Scale: Adult tm6 05:18 Pain Scale: Adult tm6 [place] Coma Score: 01:15 Eye Response: spontaneous(4). Motor Response: obeys commands(6). Verbal Response: km8 oriented(5). Total: 15. MDM: 01:03 Patient medically screened. cp 10/30 01:16 Order name: Urine Microscopic Only; Complete Time: 03:13 cp 10/30 03:14 Interpretation: Normal except: URBC 5-10; BYST Moderate. cp 10/30 01:16 Order name: Test, Urine; Complete Time: 03:13 cp 10/30 01:27 Order name: CBC with Diff; Complete Time: 03:13 cp 10/30 03:14 Interpretation: Reviewed. cp 10/30 01:27 Order name: CMP; Complete Time: 03:13 cp 10/30 01:27 Order name: Lipase; Complete Time: 03:13 cp 10/30 03:13 Interpretation: Reviewed. cp 10/30 05:29 Order name: Urine Culture adam 10/30 01:27 Order name: CT Abd/Pelvis - IV Contrast Only cp 10/30 01:27 Order name: IV Saline Lock; Complete Time: 01:51 cp 10/30 01:27 Order name: Labs collected and sent; Complete Time: 01:51 cp Administered Medications: 01:51 Drug: NS 0.9% IV 1000 ml IV at 999 ml/hr Per protocol; 1000 mL bolus Route: IV; Rate: km8 999 ml/hr; Site: right antecubital; 03:50 Follow up: IV Status: Completed infusion; IV Intake: 1000ml km8 02:52 Drug: Ketorolac IVP 15 mg IVP once Route: IVP; Site: right antecubital; km8 03:10 Follow up: Response: No adverse reaction km8 03:45 Drug: fentaNYL (PF) IVP 25 mcg IVP once Route: IVP; Site: right antecubital; tm6 03:57 Follow up: Pain 5/10 Adult; Response: Pain is decreased tm6 03:45 Drug: Methocarbamol IVPB 1 grams IVPB once over 1 hrs; (mix in NS 100 mL) Route: IVPB; tm6 Infused Over: 1 hrs; Site: right antecubital; Disposition: 05:30 Co-signature as Attending Physician, Jorge Reyes MD I agree with the assessment and [facility] plan of care. Disposition Summary: 10/31/23 05:28 Discharge Ordered Notes: Location: Home adam Problem: new adam Symptoms: have improved adam Condition: Stable adam Diagnosis - Low back pain adam - UTI/ Urinary tract infection, site not specified adam - Other cholelithiasis without obstruction adam Followup: cp - With: Private Physician - When: 2 - 3 days - Reason: Recheck today's complaints Followup: adam - With: Ricardo Lai MD - When: 2 - 3 days - Reason: Recheck today's complaints, Re-evaluation by your physician Discharge Instructions: - Urinary Tract Infection, Adult adam - Cholelithiasis adam - Urinary Tract Infection, Adult, Qixh-ej-Kcei adam - Discharge Summary Sheet cp - Acute Back Pain, Adult cp - Heat Therapy cp - Back Exercises cp Forms: - Medication Reconciliation Form [facility] - Antibiotic Education adam - Prescription Opioid Use [facility] - Patient Portal Instructions [facility] - Leadership Thank You Letter [facility] - Work release form tm6 Prescriptions: - Bactrim DS 800-160 mg Oral Tablet - take 1 tablet ORAL route every 12 hours for 7 days; 14 tablet; Refills: 0, [facility] Product Selection Permitted - Diclofenac Sodium 75 mg Oral Tablet Sustained Release - take 1 tablet ORAL route 2 times per day; 30 tablet; Refills: 0, Product cp Selection Permitted - methocarbamol 750 mg Oral tablet - take 1 tablet ORAL route 3 times per day; 30 tablet; Refills: 0, Product cp Selection Permitted Signatures: Dispatcher [employer] EDJorge Lewis MD MD cha Page, Corey, PA PA cp Giovanni Callahan, RN RN jb4 Madeline Botello, RN RN km8 Justin Higuera RN RN tm6 Corrections: (The following items were deleted from the chart) 01:28 01:28 CBC+H.LAB.BRZ ordered. EDMS EDMS 01:28 01:28 COMPREHENSIVE METABOLIC PANEL+C.LAB.BRZ ordered. EDMS EDMS 01:28 01:28 LIPASE+C.LAB.BRZ ordered. EDMS EDMS 01:28 01:28 Abdomen Pelvis W Con+CT.RAD.BRZ ordered. EDMS EDMS
[2023-10-31 15:07] VITALS: BP 112/68; TEMP 98.4; O2SAT 98
--- NOTE | 2023-10-31 23:11 | RAD REPORT ---
EXAM DESCRIPTION: CT - Abdomen Pelvis W Contrast - 10/31/2023 10:38 am RadLex: CT ABDOMEN PELVIS WITH IV CONTRAST CLINICAL HISTORY: 27 years Female; low back pain; IV ONLY Bed Name: 7 TECHNIQUE: CT of the abdomen and pelvis with intravenous contrast. All CT scans at this facility use dose modulation, iterative reconstruction, and/or weight based dosi ng when appropriate to reduce radiation dose to as low as reasonably achievable. COMPARISON: None. FINDINGS: Lower thorax: Lung bases are clear Abdomen: Stomach: Within normal limits Liver: No focal lesions. No intrahepatic ductal distention. Gallbladder: Cholelithiasis. Pancreas: Within normal limits Spleen: Within normal limits Right kidney: No hydronephrosis. No focal lesion. Left kidney: No hydronephrosis. No focal lesion. Adrenal glands: Within normal limits Vascular structures: Within normal limits Nodes: No lymphadenopathy by size criteria Pelvis: Small bowel: No significant distention. Appendix: Within normal limits Colon: No distention or acute pericolonic edema. Peritoneum: No free intraperitoneal fluid or air. Bones: No acute bone findings. Mild multilevel lumbar spondylosis, most pronounced at L5-S1. Bladder: Mild diffuse wall thickening, could be secondary to underdistention. Reproductive organs: No acute findings. Soft tissues: Small fat-containing umbilical hernia. IMPRESSION: 1. No acute abdominopelvic findings. 2. Cholelithiasis. 3. Mild diffuse bladder wall thickening, could be secondary to underdistention. Correlate with urin alysis for evidence of cystitis. Electronically signed by: Will Sandhu MD 10/31/2023 05:20 AM CDT Due to temporary technical issues with the PACS/Fluency reporting system, reports are being signed by the in house radiologists without review as a courtesy to insure prompt reporting. The interpreting radiologist is fully responsible for the content of the report.
== END 2023-10-31 05:44 | disposition home or self-care (01) ==
LOC: ER 00:56
DX: N39.0 Urinary tract infection, site not specified (principal); K80.80 Other cholelithiasis without obstruction
CPT/HCPCS: 36415; 74177; 80053; 81015; 81025; 83690; 85025; 87086; 87088; 96361; 96374; 96375; 99284; J2800; J3010; J7030; Q9967